=== PATIENT | male | born 1970 | race Hispanic/Latino ===

== ENCOUNTER 2017-05-15 14:37 | Observation (INO) | payer BC ==
[2017-05-15 15:16] LABS: Absolute Lymphocytes (CBC) 1.5 K/uL (0.7-4.9); Absolute Monocytes 0.8 K/uL (0.1-1.3); Absolute Neutrophil 3.6 K/uL (1.8-8.0); Basophils % 0.8 % (0-1.3); Eosinophils % 2.4 % (0-4.4); MCH 15.6 pg (27.0-35.0); MCV 59.2 fL (80-100); MPV 8.8 fL (7.6-11.3); Monocytes % 12.7 % (3.3-12.3); RBC Red Blood Cell Count 2.36 M/uL (4.33-5.43)
[2017-05-15 15:21] LABS: Anisocytosis 2+; Basophilic Stippling 1+; Blood Morphology Comment NOTED (NOT SEEN); Hypochromasia 3+; Platelet Estimate ADEQ; Polychromasia SLIGHT; Urine White Blood Cell Casts OK
[2017-05-15 15:31] LABS: Bicarbonate 24 mEq/L (21-31); Glucose Level 120 mg/dL (65-120); Potassium 4.1 mEq/L (3.6-5.0); Sodium Level 136 mEq/L (135-145)
[2017-05-15 15:39] LABS: BUN Blood Urea Nitrogen 11 mg/dL (6-20); Transferrin 323 mg/dL (180-329)
[2017-05-15 15:58] LABS: Ferritin 1.2 ng/ml (23.9-336.2)
[2017-05-15 16:01] LABS: Folic Acid, (Folate) 16.8 ng/ml (>5.21)
--- NOTE | 2017-05-15 16:30 | EDPHYS ---
Physician Documentation [facility] Name: Day Ortez Age: 47 yrs Sex: Male : 1970 Arrival Date: 05/15/2017 Time: 14:38 Bed 28 Private MD: ARNAUD Physician Anoop Cid HPI: 05/15 15:59 This 47 yrs old Male presents to ER via Wheelchair with complaints of Abnormal kb Lab Results. 15:59 The patient has not experienced similar symptoms in the past. The patient has been kb recently seen by a physician:. 15:59 The patient presents with generalized weakness. Onset: The symptoms/episode kb began/occurred 4 month(s) ago. Context: just prior to the episode the patient experienced no apparent symptoms. Modifying factors: The symptoms are alleviated by nothing, the symptoms are aggravated by nothing. Associated signs and symptoms: Pertinent positives: weakness and fatigue. Severity of symptoms: At their worst the symptoms were moderate in the emergency department the symptoms are unchanged. Patient's baseline: Neuro: alert and fully oriented, Motor: no deficits, Ambulation: walks without assistance, Speech: normal. Pt reports he has had weakness and fatigue since January. Has been going to doctors, but labs weren't done until today. He was told to come to the ER because his blood count was too low. . Historical: - Allergies: 14:44 No Known Allergies; la1 - PMHx: 14:44 None; la1 - PSHx: 14:44 None; la1 - Immunization history:: Adult Immunizations up to date. - Social history:: Smoking status: Patient/guardian denies using tobacco. ROS: 15:58 Constitutional: Negative for fever, chills, and weight loss, ENT: Negative for injury, kb pain, and discharge, Neck: Negative for injury, pain, and swelling, Cardiovascular: Negative for chest pain, palpitations, and edema, Respiratory: Negative for shortness of breath, cough, wheezing, and pleuritic chest pain, Abdomen/GI: Negative for abdominal pain, nausea, vomiting, diarrhea. +constipation Back: Negative for injury and pain, : Negative for injury, bleeding, discharge, and swelling, MS/Extremity: Negative for injury and deformity, Skin: Negative for injury, rash, and discoloration. 15:58 Neuro: Positive for weakness, Negative for altered mental status, dizziness, gait disturbance, headache, hearing loss, loss of consciousness, numbness, seizure activity, speech changes, syncope, near syncope, tingling, tinnitus, tremor, visual changes. Exam: 15:58 Constitutional: This is a well developed, well nourished patient who is awake, alert, kb and in no acute distress. Head/Face: Normocephalic, atraumatic. Chest/axilla: Normal chest wall appearance and motion. Nontender with no deformity. No lesions are appreciated. Cardiovascular: Regular rate and rhythm with a normal S1 and S2. No gallops, murmurs, or rubs. Normal PMI, no JVD. No pulse deficits. Respiratory: Lungs have equal breath sounds bilaterally, clear to auscultation and percussion. No rales, rhonchi or wheezes noted. No increased work of breathing, no retractions or nasal flaring. Abdomen/GI: Soft, non-tender, with normal bowel sounds. No distension or tympany. No guarding or rebound. No evidence of tenderness throughout. Skin: Warm, dry with normal turgor. Normal color with no rashes, no lesions, and no evidence of cellulitis. MS/ Extremity: Pulses equal, no cyanosis. Neurovascular intact. Full, normal range of motion. Neuro: Awake and alert, GCS 15, oriented to person, place, time, and situation. Cranial nerves II-XII grossly intact. Motor strength 5/5 in all extremities. Sensory grossly intact. Cerebellar exam normal. Normal gait. 15:58 Abdomen/GI: Rectal exam: rectal tone normal, Stool: brown, guaiac positive, hemorrhoid(s), external, the exam is chaperoned by the nurse, trace positive guaiac. Vital Signs: 14:44 BP 139 / 71; Pulse 92; Resp 19; Temp 98.1; Pulse Ox 100% on R/A; Weight 99.79 kg (R); la1 16:03 BP 127 / 65; Pulse 92; Resp 18; Pulse Ox 98% ; kb1 17:41 BP 133 / 78; Pulse 86; Resp 20; Temp 98.6; Pulse Ox 100% on R/A; kb1 MDM: 14:51 Patient medically screened. kb 15:57 Data reviewed: vital signs, nurses notes. Data interpreted: Pulse oximetry: on room air kb is 100 %. Interpretation: normal. Counseling: I had a detailed discussion with the patient and/or guardian regarding: the historical points, exam findings, and any diagnostic results supporting the discharge/admit diagnosis, lab results, the need for further work-up and treatment in the hospital. 16:28 Physician consultation: Gage Fox DO was contacted at 16:28, regarding admission, kb to the telemetry unit. patient's condition, in the emergency department to see patient at 16:29. 05/15 15:06 Order name: CBC with Diff; Complete Time: 15:29 kb 05/15 15:06 Order name: Basic Metabolic Panel; Complete Time: 16:03 kb 05/15 15:06 Order name: Ferritin; Complete Time: 16:03 kb 05/15 15:06 Order name: B12; Complete Time: 16:03 kb 05/15 15:06 Order name: Type And Screen kb 05/15 15:06 Order name: TIBC; Complete Time: 16:03 kb 05/15 15:06 Order name: Folic Acid,Serum (folate); Complete Time: 16:03 kb 05/15 15:21 Order name: CBC Smear Scan; Complete Time: 15:29 EDSD 05/15 15:52 Order name: Bb Add On ag 05/15 15:54 Order name: ABO/RH no charge; Complete Time: 15:55 EDSD 05/15 16:07 Order name: Packed RBC Leukored -1 EDSD 05/15 16:51 Order name: CONS Physician Consult EDSD 05/15 16:51 Order name: Echo with Doppler EDSD 05/15 16:52 Order name: Chest Pa And Lat (2 Views) EDSD 05/15 15:06 Order name: IV Start; Complete Time: 15:27 kb 05/15 16:51 Order name: Heart Healthy EDSD Administered Medications: No medications were administered Disposition: 05/15/17 16:29 Hospitalization ordered by Gage Fox for Observation. Preliminary diagnosis are Anemia, unspecified, Gastrointestinal hemorrhage, unspecified. - Bed requested for Telemetry/MedSurg (observation). - Status is Observation. ss - Condition is Stable. - Problem is new. - Symptoms are unchanged. UTI on Admission? No Addendum: 05/18/2017 08:33 Co-signature as Attending Physician, Anoop Cid MD I agree with the assessment and c ngo plan of care. Signatures: Dispatcher [employer] Rhoda Sanchez, SENIOR TECHNICAL RECRUITER-C SENIOR TECHNICAL RECRUITER-Anoop Gamez MD MD cha Smirch, Shelby RN RN ss Shin Zamora RN RN la1 Sariah Holden RN RN df
--- NOTE | 2017-05-15 16:30 | ER ---
Nurse's Notes [facility] Name: Day Ortez Age: 47 yrs Sex: Male : 1970 Arrival Date: 05/15/2017 Time: 14:38 Bed 28 Private MD: Diagnosis: Anemia, unspecified;Gastrointestinal hemorrhage, unspecified Presentation: 05/15 14:43 Presenting complaint: Patient states: He has been feeling weak and short of breath la1 since January, Lin Varner ordered some blood work and his HGB is 3.6 and HCT is 15.2. Transition of care: patient was not received from another setting of care. Onset of symptoms was May 15, 2017. Care prior to arrival: None. 14:43 Method Of Arrival: Wheelchair la1 14:43 Acuity: BRANNON 3 la1 Historical: - Allergies: 14:44 No Known Allergies; la1 - PMHx: 14:44 None; la1 - PSHx: 14:44 None; la1 - Immunization history:: Adult Immunizations up to date. - Social history:: Smoking status: Patient/guardian denies using tobacco. Screenin:20 Abuse screen: Denies threats or abuse. Nutritional screening: No deficits noted. [facility] Tuberculosis screening: No symptoms or risk factors identified. Fall Risk IV access (20 points). Assessment: 15:20 Reassessment: Family reports Pt has been feeling bad for a couple months now. Went to [facility] and had blood drawn. Sent to ER for further evaluation due to low blood count. General: Appears in no apparent distress. Behavior is calm, cooperative. Pain: Denies pain. Neuro: Level of Consciousness is awake, alert, obeys commands, Oriented to person, place, time, situation. Cardiovascular: Patient's skin is warm and dry. Respiratory: Airway is patent Respiratory effort is even, unlabored, Respiratory pattern is regular, symmetrical. GI: Abdomen is round Bowel sounds present X 4 quads. Abd is soft and non tender. : No signs and/or symptoms were reported regarding the genitourinary system. 15:23 Reassessment: Dr. Cid notified of critical lab values Hgb 3.7 and Hct 14.0. 16:02 Reassessment: Assisted to bathroom and back to bed. Tolerated well. [facility] 17:05 Reassessment: Patient appears in no apparent distress at this time. Patient and/or kb1 family updated on plan of care and expected duration. Pain level reassessed. Blood consent signed. Vital Signs: 14:44 BP 139 / 71; Pulse 92; Resp 19; Temp 98.1; Pulse Ox 100% on R/A; Weight 99.79 kg (R); la1 16:03 BP 127 / 65; Pulse 92; Resp 18; Pulse Ox 98% ; kb1 17:41 BP 133 / 78; Pulse 86; Resp 20; Temp 98.6; Pulse Ox 100% on R/A; kb1 ED Course: 14:38 Patient arrived in ED. as 14:44 Triage completed. la1 14:45 Arm band placed on left wrist. la1 14:51 Rhoda English FNP-C [facility] kb 14:51 Anoop Cid MD is Attending Physician. kb 14:52 Isabel Colorado, RN is Primary Nurse. kb1 15:20 Patient has correct armband on for positive identification. Bed in low position. Call kb1 light in reach. Side rails up X 1. quality assurance monitor body on. Pulse ox on. NIBP on. Warm blanket given. 15:20 No provider procedures requiring assistance completed. kb1 15:27 Inserted saline lock: 18 gauge in right antecubital area, using aseptic technique. kb1 Blood collected. 16:29 Gage Fox DO is Hospitalizing Provider. kb 17:42 Patient admitted, IV remains in place. kb1 Administered Medications: No medications were administered Outcome: 16:29 Decision to Hospitalize by Provider. kb 17:42 Admitted to Tele accompanied by nurse, accompanied by tech, family with patient, via kb1 stretcher, room 209, Report called to Lisa CHEEK 17:42 Condition: stable 17:42 Instructed on the need for admit. 18:06 Patient left the ED. Signatures: Rhoda English FNP-C FNP-Ara Cruz Shelby, RN RN ss Shin Zamora RN RN la1 Isabel Colorado, ADIA RN kb
[2017-05-15] MEDS ORDERED: ONDANSETRON 4 MG/2 ML VIAL IV PRN (16:46)
[2017-05-15] MEDS ORDERED: SODIUM CHLORIDE 0.9% 10ML INJ IV PRN (16:46)
[2017-05-15] MEDS ORDERED: ACETAMINOPHEN 500 MG TAB PO PRN ×2 (16:46)
[2017-05-15] MEDS ORDERED: NA CHLORIDE 0.9% 250 ML ONE (16:53)
--- NOTE | 2017-05-15 16:57 | P.HP ---
Certification for Inpatient Patient admitted to: Observation With expected LOS: <2 Midnights Patient will require the following post-hospital care: None Practitioner: I am a practitioner with admitting privileges, knowledge of patient current condition, hospital course, and medical plan of care. Services: Services provided to patient in accordance with Admission requirements found in Title 42 Section 412.3 of the Code of Federal Regulations Patient History Date of Service: 05/15/17 Primary Care Provider: Dr. Coats Reason for admission: Fatigue, shortness of breath History of Present Illness: 47-year-old male presented emergency room with increasing fatigue and shortness of breath along with abnormal lab. She reports that he was diagnosed with pneumonia in January 2017. He was treated for this. Since that time his allergies has been active. He reports increasing cough and congestion. He also reports some shortness of breath. During this time. He has been taking ibuprofen on a regular basis due to aches and pains. Patient has history of alcohol abuse in the past. He was a heavy drinker prior to 6 months ago. Patient denied any significant melena, rectal bleeding, hematemesis. The patient recently went to be evaluated by his PCP. Lab was obtained. Lab was abnormal for severe anemia. The patient was sent to the ER for further evaluation. In the ER the patient was evaluated. Hemoglobin was at 3.7. This was repeated and confirmed. Iron level and B12 levels were both low. Due to the nature the findings the patient was admitted for blood transfusion and evaluation. When I saw the patient in the ER, he did not appear in any distress. Patient reports a history of using ibuprofen on a regular basis. He also admits to alcohol abuse in the past. Patient has been reporting some increased indigestion and reflux. Allergies No Known Allergies Allergy (Unverified 03/08/17 21:12) Home medications list reviewed: Yes - Past Medical/Surgical History Diabetic: No -: History of alcohol abuse in the past -: GERD Past Surgical History: Patient denies surgical history Psychosocial/ Personal History: The patient is . 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 - Family History Family History: Reviewed- Non-Contributory - Social History Smoking Status: Never smoker Alcohol use: Yes CD- Drugs: No Caffeine use: Yes Place of Residence: Home Review of Systems General: Weakness, Malaise, As per HPI Eyes: Unremarkable ENT: Unremarkable Respiratory: Shortness of Breath, As per HPI Cardiovascular: Unremarkable Gastrointestinal: Unremarkable Genitourinary: Unremarkable Musculoskeletal: Unremarkable Integumentary: Unremarkable Neurological: Unremarkable Lymphatics: Unremarkable Physical Examination - Physical Exam General: Alert, In no apparent distress, Oriented x3, Cooperative HEENT: Atraumatic, Normocephalic, PERRLA, Mucous membr. moist/pink Neck: Supple, No Thyromegaly Respiratory: Clear to auscultation bilaterally, Normal air movement Cardiovascular: Normal pulses, Regular rate/rhythm Gastrointestinal: Normal bowel sounds, Soft and benign, Non-distended, No tenderness, No masses, No rebound, No guarding Musculoskeletal: No contractures, No erythema, No tenderness, No warmth Integumentary: No tenderness/swelling, No erythema, No warmth, No cyanosis Neurological: Normal speech, Normal strength at 5/5 x4 extr, Normal tone, Normal affect - Studies Laboratory Data (last 24 hrs) 05/15/17 15:01: Sodium 136, Potassium 4.1, BUN 11, Creatinine 0.85, Glucose 120 05/15/17 15:01: WBC 6.1, Hgb 3.7 L*, Hct 14.0 L*, Plt Count 192 Assessment and Plan - Problems (Diagnosis) (1) Anemia Current Visit: Yes Status: Acute Plan: Patient with anemia likely from NSAID use and history of alcohol. Patient reports GERD. No melena, rectal bleeding or hematemesis noted. Patient will be transfused 2 units of blood initially. Will try to keep hemoglobin above 7. Will discuss case with GI. Will keep the patient NPO for possible EGD as an inpatient. If stable the patient can also have a workup done as an outpatient. Will reassess in the morning. Will start IV Protonix. Recommend no further use of nonsteroidal anti-inflammatories. Will provide iron and B12 supplementation. I will be out of town tomorrow. Dr. Bhatt will cover (2) Fatigue Current Visit: Yes Status: Acute Plan: As above. Will check echocardiogram and TSH. Qualifiers: Fatigue type: unspecified Qualified Code(s): R53.83 - Other fatigue (3) GERD (gastroesophageal reflux disease) Current Visit: Yes Status: Chronic Plan: Patient likely has GERD. Will continue as above. Await recommendations from GI. Qualifiers: Esophagitis presence: esophagitis presence not specified Qualified Code(s) : K21.9 - Gastro-esophageal reflux disease without esophagitis (4) Shortness of breath Current Visit: Yes Status: Acute Plan: Patient with increasing shortness of breath. This is likely due to anemia. Will check echocardiogram and chest x-ray to further assess. Discharge Plan: Home Plan to discharge in: 24 Hours - Advance Directives Does patient have a Living Will: No Does patient have a Durable POA for Healthcare: No - Code Status/Comfort Care Code Status Assessed: Yes Time Spent Managing Pts Care (In Minutes): 55
--- NOTE | 2017-05-15 20:37 | RAD REPORT ---
EXAM DESCRIPTION: Juan Jose Single View05/15/2017 8:11 pm CLINICAL HISTORY: Shortness of breath COMPARISON: none FINDINGS: A 3 centimeter lucency overlies the right side of the heart. Otherwise the lungs appear cl ear. The heart is borderline enlarged IMPRESSION: 3 centimeter lucency overlying the right heart may represent normal aerated lung. A cavi tary lesion could also have this appearance. It is recommended that the patient have a PA and lateral chest series for further evaluation
[2017-05-15] MEDS ORDERED: DIPHENHYDRAMINE 25 MG TAB/CAP PO ONE (21:23)
[2017-05-15 22:43] LABS: Urine Appearance CLEAR; Urine Bilirubin NEGATIVE (NEG); Urine Blood NEGATIVE (NEG); Urine Color YELLOW; Urine Glucose NEGATIVE (NEG); Urine Protein NEGATIVE (NEG); Urine Specific Gravity 1.015 (1.005-1.030); Urine pH 7.5 (5.0-7.0)
[2017-05-15 23:10] LABS: Urine Microscopic Reflex NO UMIC
[2017-05-16] MEDS: FUROSEMIDE 20 MG/ 2ML VIAL IV SCH ×2 (02:42→11:04)
[2017-05-16 05:14] LABS: Absolute Lymphocytes (CBC) 1.3 K/uL (0.7-4.9); Absolute Monocytes 0.8 K/uL (0.1-1.3); Absolute Neutrophil 4.1 K/uL (1.8-8.0); Basophils % 2.3 % (0-1.3); Eosinophils % 3.8 % (0-4.4); Lymphocytes % 19.6 % (15.3-44.8); MPV 9.2 fL (7.6-11.3); Monocytes % 11.6 % (3.3-12.3); RBC Red Blood Cell Count 3.11 M/uL (4.33-5.43)
[2017-05-16 05:16] LABS: Hematocrit 20.1 % (39.6-49.0); MCV 64.7 fL (80-100)
[2017-05-16] MEDS ORDERED: FUROSEMIDE 20 MG/ 2ML VIAL IV PRN (05:39)
[2017-05-16] MEDS ORDERED: NA CHLORIDE 0.9% 250 ML ONE (06:51)
[2017-05-16 08:25] LABS: BUN Blood Urea Nitrogen 11 mg/dL (6-20); Bicarbonate 27 mEq/L (21-31); Glucose Level 92 mg/dL (65-120); HDL Cholesterol 26 mg/dL (27-67); LDL Cholesterol, Calculated 78 (<130); Potassium 4.1 mEq/L (3.6-5.0); Sodium Level 137 mEq/L (135-145); Thyroid Stimulating Hormone 3.03 uIU/mL (0.34-5.60)
[2017-05-16] MEDS ORDERED: PANTOPRAZOLE 40 MG INJ IVP SCH (09:00)
[2017-05-16] MEDS ORDERED: PROPOFOL 200 MG/20 ML VIAL IV ONE (09:24)
[2017-05-16] MEDS ORDERED: LIDOCAINE 1% MPF 5 ML VIAL ONE (09:24)
[2017-05-16] MEDS: Ringers Lactate 1,000 ML IV ONE ×2 (09:25→09:40)
[2017-05-16] MEDS: METOCLOPRAMIDE 10 MG/2mL INJ IV SCH ×3 (12:00→17:26)
--- NOTE | 2017-05-16 12:06 | P.PN ---
Subjective Date of Service: 05/16/17 (Hospitalist) Primary Care Provider: Dr. Coats Chief Complaint: Severe anemia Subjective: Improving (Patient is improving status post EGD no new complaints) Review of Systems Yoruba-speaking denies any complaints Physical Examination - Vital Signs Temperature: 97.7 F Blood Pressure: 130/71 Pulse: 70 Respirations: 20 Pulse Ox (%): 98 - Physical Exam General: Alert, Cooperative Neck: Supple Respiratory: Clear to auscultation bilaterally Cardiovascular: No edema, Regular rate/rhythm Gastrointestinal: Normal bowel sounds, Soft and benign - Studies Laboratory Data (last 24 hrs) 05/15/17 15:01: Sodium 136, Potassium 4.1, BUN 11, Creatinine 0.85, Glucose 120 05/15/17 15:01: WBC 6.1, Hgb 3.7 L*, Hct 14.0 L*, Plt Count 192 Assessment & Plan - Problems (Diagnosis) (1) Anemia Current Visit: Yes Status: Acute Plan: Patient is 47 years of age admitted with severe anemia the EGD today was negative he is scheduled for a colonoscopy tomorrow as no history of GI bleeding he did have a severe chronic microcytic anemia most likely to underlying GI blood loss scheduled to have a hemoglobin checked again he has been transfused 3 units of packed red blood cells is all iron-deficient anemia replace iron
[2017-05-16 12:33] LABS: Hematocrit 23.4 % (39.6-49.0)
[2017-05-16] MEDS: MAGNESIUM CITRATE 300 ML BOT PO SCH (13:41)
[2017-05-16] MEDS: SOD FERRIC GLUC COMPLX/SUCROSE 250 MG in NA CHLORIDE 0.9% 250 ML IV SCH (13:50)
--- NOTE | 2017-05-16 14:46 | CON ---
Date of Consultation: 05/16/2017 Reason For Consultation: Hematemesis with iron-deficiency anemia and family history of colon cancer. History Of Present Illness: The patient is a 47-year-old male with history of chronic cough and family history of colon cancer in his father. The patient presented to the hospital due to incr easing fatigue and shortness of breath after being seen by his primary care physician on abnormal lab . He is noted to have a hemoglobin down to 3.7. Daughter states that he has had been having some mi nor hematochezia recently, but the main reason he came in is because his hemoglobin was low with this fatigue, severe and hematemesis. Though she says he has minimal hematemesis, the real reason is marlo t he has been fatigued and has a very low hemoglobin on evaluation by a new primary care, Lin vergara. Past Medical History: Significant for alcohol abuse in the past, gastric reflux disease, and bronchi tis. Daughter states he is having a chronic cough for some time at least and month and is diagnosed with bronchitis. Home Medications: Appears to be none. Allergies: NKDA. Social History: He is . One daughter. No tobacco, quit alcohol 7 months ago due to his 's insistence for prior alcohol abuse. Family History: Father of colon cancer. Mother is alive with knee disorder. Review of Systems: The patient has fatigue; hematemesis, hematochezia, both minimal; iron deficiency anemia, chronic cou gh. Denies any melena, hemoptysis, hematuria, dysuria, polydipsia, chest pain, this low mouth, short ness of breath, not much. No seizures, syncope, lower extremity edema, paresthesias, muscle aches, j oint aches, backaches. Physical Examination: Vital Signs: The patient and 5 foot 5 inches, BMI 37.3 kg/m2. Temperature 97.8 degrees Fahrenheit, pulse 71, respirations 18, blood pressure 113/58, O2 saturation 99%. HEENT: Normocephalic, atraumatic. Anicteric. Pupils equal, round, and reactive to light. Extraocu lar movements are clear. Conjunctiva pale. Neck: Supple. No masses. Respirations: Clear to auscultation bilaterally. Cardiac: Regular rate and rhythm. No gallops or rubs. Gastrointestinal: Positive bowel sounds. Soft, nontender, nondistended. No hepatosplenomegaly. Extremities: No clubbing, cyanosis, edema. 2+ pulses. Neuro: Alert and oriented x3. Grossly nonfocal. 5/5 motor strength to light touch. Laboratory Data: On admission yesterday, patient had a white count 6.1, hemoglobin 3.7, hematocrit 1 4, MCV of 59.2, platelet count 192, polys of 59%, lymphocytes 24%, monocytes 13%, eosinophils 2%. To day after 2 units of blood, his hemoglobin went up from 3.7 to 5.9. Today, he has a hematocrit today has a sodium 137, potassium 4.1, chloride 101, bicarb 27, BUN 11, creatinine of 0.84, glucose 92, ca lcium 8.4, magnesium 3. He has an iron saturation of 2.2, ferritin of 1.2, iron of 10, TIBC of 452, triglycerides 55, cholesterol 115, LDL 78, HDL 26, vitamin B12 at 282, folate of 16.8, TSH of 3.03, f ree T4 0.94. UA is negative. Chest x-ray showed a 3 cm lucency overlying the heart, may represent n ormal area of lung. The cavitary lesion could also have this appearance. Recommend the patient have a PA and lateral for further evaluation and get that order. Impression: 1.Severe iron-deficiency anemia with hemoglobin of 3.7, MCV of 59, ferritin of 1.2, iron saturation of 2.2. Needs both evaluation with EGD and colonoscopy. 2.Minimal hematemesis. 3.Minimal hematochezia by daughter's report. 4.Chronic bronchitis. 5.Family history of colon cancer in father. Need to be evaluated. Colonoscopy. Recommendation: 1.EGD. 2.Colonoscopy. 3.Agree with packed RBCs transfusion, currently undergoing. 4.Serial H and H and transfuse p.r.n. and also PPI therapy. ROXANA/SALVADOR Voice ID: [id number] Report ID: [id number]
[2017-05-16] MEDS: GOLYTELY 4000 ML PO SCH (15:21)
--- NOTE | 2017-05-16 21:37 | RAD REPORT ---
EXAM DESCRIPTION: RAD - Chest Pa And Lat (2 Views) - 05/16/2017 9:30 pm CLINICAL HISTORY: Chest pain. COMPARISON: 05/15/2017 FINDINGS: The lungs are clear. The heart is normal in size. No displaced fractures. Moderate hiatal hernia. IMPRESSION: Moderate hiatal hernia.
[2017-05-17 05:14] LABS: Absolute Lymphocytes (CBC) 1.1 K/uL (0.7-4.9); Absolute Monocytes 0.7 K/uL (0.1-1.3); Absolute Neutrophil 5.1 K/uL (1.8-8.0); Basophils % 1.6 % (0-1.3); Eosinophils % 2.2 % (0-4.4); Lymphocytes % 15.2 % (15.3-44.8); MCV 66.3 fL (80-100); MPV 9.4 fL (7.6-11.3); Monocytes % 10.1 % (3.3-12.3); RBC Red Blood Cell Count 3.46 M/uL (4.33-5.43)
[2017-05-17 05:44] LABS: BUN Blood Urea Nitrogen 12 mg/dL (6-20); Bicarbonate 27 mEq/L (21-31); Glucose Level 94 mg/dL (65-120); Magnesium 2.3 mg/dL (1.8-2.5); Potassium 3.9 mEq/L (3.6-5.0); Sodium Level 138 mEq/L (135-145)
[2017-05-17] MEDS ORDERED: NA CHLORIDE 0.9% 250 ML ONE (06:29)
[2017-05-17] MEDS: SOD FERRIC GLUC COMPLX/SUCROSE 250 MG in NA CHLORIDE 0.9% 250 ML IV SCH (09:00)
[2017-05-17] MEDS ORDERED: PROPOFOL 200 MG/20 ML VIAL IV ONE ×2 (10:19→10:49)
[2017-05-17] MEDS ORDERED: NA CHLORIDE 0.9% 1,000 ML ONE (10:39)
[2017-05-17] MEDS ORDERED: POTASSIUM CL SA 10 MEQ TAB PO ONE (12:00)
[2017-05-17] MEDS: GOLYTELY 4000 ML PO SCH (12:39)
[2017-05-17] MEDS: MAGNESIUM CITRATE 300 ML BOT PO SCH (12:39)
--- NOTE | 2017-05-17 12:48 | RAD REPORT ---
EXAM DESCRIPTION: RAD - Small Bowel Series - 05/17/2017 12:27 pm CLINICAL HISTORY: Abdominal pain/ COMPARISON: None. FINDINGS: Contrast enters the colon by approximately 30 minutes The mucosal folds of the small bowel appear normal. No permanent filling defects, obstructing or constricting lesions are seen. The small bowel caliber is normal. The mucosal folds of the duodenum appears somewhat nodular. A small to moderate hiatal hernia is pres ent IMPRESSION: Rapid small-bowel transit. Small to moderate hiatal hernia Mucosal folds of the duodenum appears somewhat nodular. It is unsure whether this is secondary to pat hology such as inflammation/infection or incomplete distention. A CT scan with oral contrast and opac ification of the duodenum would be helpful for further evaluation
--- NOTE | 2017-05-17 13:59 | P.DS ---
Admission Date: 05/15/17 Discharge Date: 05/17/17 Primary Care Provider: Dr. Coats Disposition: ROUTINE DISCHARGE Reason for Admission: Severe anemia Procedures: Endoscopy and colonoscopy - Problems (1) Anemia Current Visit: Yes Status: Acute Qualifiers: Anemia type: iron deficiency Brief History of Present Illness: Patient is 47 years of age admitted with severe anemia he denies any history of GI loss apart from taking nonsteroidals Hospital Course: Patient had no problems during the stay he was transfused 4 units of packed red blood cells in addition to IV IN for anoscopy and endoscopy apparently when nondiagnostic small-bowel both of follow through shows some inflammation in the duodenal area patient is stable to be discharged home at the time of discharge he was alert oriented responsive vital signs all stable for new complaints no abdominal pain and nobody chest clear when soft extremities no edema patient to continue with I and follow up with GI will go home on a PPI instructed to ovoid using nonsteroidals Vital Signs/Physical Exam: Temp Pulse Resp BP Pulse Ox 98.8 F 78 20 120/69 96 05/17/17 11:01 05/17/17 11:01 05/17/17 11:01 05/17/17 11:01 05/17/17 08:00 Laboratory Data at Discharge: WBC 7.3 K/uL (4.3-10.9) 05/17/17 04:53 Hgb 6.9 g/dL (13.6-17.9) L* 05/17/17 04:53 Hct 23.0 % (39.6-49.0) L 05/17/17 04:53 Plt Count 180 K/uL (152-406) 05/17/17 04:53 Sodium 138 mEq/L (135-145) 05/17/17 04:53 Potassium 3.9 mEq/L (3.6-5.0) 05/17/17 04:53 BUN 12 mg/dL (6-20) 05/17/17 04:53 Creatinine 0.85 mg/dL (0.61-1.24) 05/17/17 04:53 Glucose 94 mg/dL (65-120) 05/17/17 04:53 Magnesium 2.3 mg/dL (1.8-2.5) 05/17/17 04:53 Triglycerides 55 mg/dL (35-160) 05/16/17 04:22 Cholesterol 115 mg/dL (<200) 05/16/17 04:22 HDL Cholesterol 26 mg/dL (27-67) L 05/16/17 04:22 Cholesterol/HDL Ratio 4.42 05/16/17 04:22 Home Medications: NK [No Home Meds] 05/16/17
[2017-05-17 14:39] LABS: Hematocrit 25.9 % (39.6-49.0)
== END 2017-05-17 15:38 | disposition home or self-care (01) ==
LOC: ER 14:37 → ERHOLD 16:38 → 2ND 17:28
PROVIDERS: ADMIT Family Medicine; ATTEND Family Medicine
PROC: 0DB78ZX Excision of Stomach, Pylorus, Via Natural or Artificial Opening Endoscopic, Diagnostic (ICD-10-PCS; 2017-05-16)
PROC: 30233N1 Transfusion of Nonautologous Red Blood Cells into Peripheral Vein, Percutaneous Approach (ICD-10-PCS; 2017-05-17)
PROC: 0DJD8ZZ Inspection of Lower Intestinal Tract, Via Natural or Artificial Opening Endoscopic (ICD-10-PCS; principal; 2017-05-17 09:00)
DX: D50.9 Iron deficiency anemia, unspecified (principal); K92.0 Hematemesis; K21.9 Gastro-esophageal reflux disease without esophagitis; R53.83 Other fatigue; K64.4 Residual hemorrhoidal skin tags; K64.8 Other hemorrhoids; K44.9 Diaphragmatic hernia without obstruction or gangrene; Z80.0 Family history of malignant neoplasm of digestive organs
CPT/HCPCS: 36415; 36430; 71045; 71046; 74250; 80048; 80061; 81003; 82607; 82728; 82746; 83540; 83735; 84439; 84443; 84466; 85014; 85018; 85025; 86850; 86900; 86901; 88305; 88312; 88313; 99285; C9113; G0378; J1940; J2765; J2916; J7030; P9016

== ENCOUNTER 2018-02-20 02:54 | Emergency (ER) | payer BC ==
--- NOTE | 2018-02-20 03:33 | ER ---
Nurse's Notes [facility] Name: Day Ortez Age: 48 yrs Sex: Male : 1970 Arrival Date: 02/20/2018 Time: 02:57 Bed 6 Private MD: Diagnosis: Fever, unspecified;Acute tonsillitis Presentation: 02/20 03:00 Presenting complaint: Patient states: that for the past 2 days he has been having fc fever, sore throat and swollen glands. Transition of care: patient was not received from another setting of care. Onset of symptoms was February 18, 2018. Risk Assessment: Do you want to hurt yourself or someone else? Patient reports no desire to harm self or others. Initial Sepsis Screen: Does the patient meet any 2 criteria? No. Patient's initial sepsis screen is negative. Does the patient have a suspected source of infection? No. Patient's initial sepsis screen is negative. Care prior to arrival: Medication(s) given: Tylenol, last at 2000 last night. 03:00 Method Of Arrival: Ambulatory fc 03:00 Acuity: BRANNON 4 fc Historical: - Allergies: 03:12 No Known Allergies; fc - Home Meds: 03:12 None [Active]; fc - PMHx: 03:12 H-pylori; fc - PSHx: 03:12 None; fc - Immunization history:: Last tetanus immunization: unknown, Flu vaccine is not up to date. - Social history:: Smoking status: Patient/guardian denies using tobacco, Patient/guardian denies using alcohol, street drugs. - Ebola Screening: : Patient negative for fever greater than or equal to 101.5 degrees Fahrenheit, and additional compatible Ebola Virus Disease symptoms Patient denies exposure to infectious person Patient denies travel to an Ebola-affected area in the 21 days before illness onset. - Family history:: not pertinent. Screenin:07 Abuse screen: Denies threats or abuse. Nutritional screening: No deficits noted. bb Tuberculosis screening: No symptoms or risk factors identified. 04:04 Fall Risk None identified. bb Assessment: 03:07 General: Appears in no apparent distress. Behavior is calm, cooperative. Pain: bb Complains of pain in throat. Neuro: Level of Consciousness is awake, alert, obeys commands, Oriented to person, place, time, situation. Cardiovascular: No deficits noted. Respiratory: Respiratory effort is even, unlabored, Respiratory pattern is regular, Breath sounds are clear bilaterally. GI: No deficits noted. No signs and/or symptoms were reported involving the gastrointestinal system. EENT: Throat is reddened has enlarged tonsils Reports sore throat. Derm: Skin is pink, warm \T\ dry. Musculoskeletal: Circulation, motion, and sensation intact. 04:01 Reassessment: No changes from previously documented assessment. Patient and/or family ed1 updated on plan of care and expected duration. Pain level reassessed. Patient is alert, oriented x 3, equal unlabored respirations, skin warm/dry/pink. pt verbalized understanding of and agrees to plan of care discharge instructions given pt ambulated with steady gait to exit accompanied by family. Vital Signs: 03:00 BP 156 / 110; Pulse 72; Resp 18; Temp 98.1(O); Pulse Ox 98% on R/A; Weight 99.79 kg fc (R); Height 5 ft. 5 in. (165.10 cm) (R); Pain 8/10; 03:00 Body Mass Index 36.61 (99.79 kg, 165.10 cm) ED Course: 02:57 Patient arrived in ED. es 03:00 Arm band placed on Patient placed in a hallway bed, on a stretcher. fc 03:07 nAoop Cid MD is Attending Physician. maddie 03:07 Africa Smallwood, ADIA is Primary Nurse. bb 03:07 Patient has correct armband on for positive identification. Bed in low position. Call bb light in reach. Side rails up X 1. Adult w/ patient. Pulse ox on. NIBP on. 03:11 Triage completed. fc 04:03 No provider procedures requiring assistance completed. Patient did not have IV access bb during this emergency room visit. Administered Medications: 03:53 Drug: Decadron 10 mg Route: IM; Site: right ventrogluteal; bb 04:03 Follow up: Response: No adverse reaction bb 03:53 Drug: Bicillin L-A 1.8 million units Route: IM; Site: left ventrogluteal; bb 04:03 Follow up: Response: No adverse reaction bb Outcome: 03:32 Discharge ordered by . maddie 04:03 Discharged to home ambulatory, with family. bb 04:03 Condition: stable 04:03 Discharge instructions given to patient, family, Instructed on discharge instructions, follow up and referral plans. Demonstrated understanding of instructions, follow-up care. 04:04 Patient left the ED. bb Signatures: Anoop Cid MD MD cha Salyer, Edna es Chretien, Felicia, RN RN Africa Cuellar RN RN Loli Gibbs, PASSENGER CONDUCTOR PASSENGER CONDUCTOR ed1
--- NOTE | 2018-02-20 03:33 | EDPHYS ---
Physician Documentation [facility] Name: Day Ortez Age: 48 yrs Sex: Male : 1970 Arrival Date: 02/20/2018 Time: 02:57 Bed 6 Private MD: ARNAUD Physician Aonop Cid HPI: 02/20 03:28 This 48 yrs old Male presents to ER via Ambulatory with complaints of Fever, maddie Swollen Glands. 03:28 The patient reports fever, that was measured at 103 degrees Fahrenheit. Onset: The maddie symptoms/episode began/occurred 1 day(s) ago. Modifying factors: there are no obvious modifying factors. Associated signs and symptoms: Pertinent positives: chills, cough. Severity of symptoms: At their worst the symptoms were mild moderate in the emergency department the symptoms are unchanged. The patient has not experienced similar symptoms in the past. Historical: - Allergies: 03:12 No Known Allergies; fc - Home Meds: 03:12 None [Active]; fc - PMHx: 03:12 H-pylori; fc - PSHx: 03:12 None; fc - Immunization history:: Last tetanus immunization: unknown, Flu vaccine is not up to date. - Social history:: Smoking status: Patient/guardian denies using tobacco, Patient/guardian denies using alcohol, street drugs. - Ebola Screening: : Patient negative for fever greater than or equal to 101.5 degrees Fahrenheit, and additional compatible Ebola Virus Disease symptoms Patient denies exposure to infectious person Patient denies travel to an Ebola-affected area in the 21 days before illness onset. - Family history:: not pertinent. ROS: 03:28 Constitutional: Negative for fever, chills, and weight loss, Eyes: Negative for injury, maddie pain, redness, and discharge, Cardiovascular: Negative for chest pain, palpitations, and edema, Respiratory: Negative for shortness of breath, cough, wheezing, and pleuritic chest pain, Abdomen/GI: Negative for abdominal pain, nausea, vomiting, diarrhea, and constipation, Back: Negative for injury and pain, : Negative for injury, bleeding, discharge, and swelling, MS/Extremity: Negative for injury and deformity, Skin: Negative for injury, rash, and discoloration, Neuro: Negative for headache, weakness, numbness, tingling, and seizure, Psych: Negative for depression, anxiety, suicide ideation, homicidal ideation, and hallucinations, Allergy/Immunology: Negative for hives, rash, and allergies, Endocrine: Negative for neck swelling, polydipsia, polyuria, polyphagia, and marked weight changes, Hematologic/Lymphatic: Negative for swollen nodes, abnormal bleeding, and unusual bruising. 03:28 ENT: Positive for sore throat. 03:28 Neck: Positive for swollen nodes, tenderness. Exam: 03:28 Constitutional: This is a well developed, well nourished patient who is awake, alert, maddie and in no acute distress. Head/Face: Normocephalic, atraumatic. Eyes: Pupils equal round and reactive to light, extra-ocular motions intact. Lids and lashes normal. Conjunctiva and sclera are non-icteric and not injected. Cornea within normal limits. Periorbital areas with no swelling, redness, or edema. Neck: Trachea midline, no thyromegaly or masses palpated, and no cervical lymphadenopathy. Supple, full range of motion without nuchal rigidity, or vertebral point tenderness. No Meningismus. Chest/axilla: Normal chest wall appearance and motion. Nontender with no deformity. No lesions are appreciated. Cardiovascular: Regular rate and rhythm with a normal S1 and S2. No gallops, murmurs, or rubs. Normal PMI, no JVD. No pulse deficits. Respiratory: Lungs have equal breath sounds bilaterally, clear to auscultation and percussion. No rales, rhonchi or wheezes noted. No increased work of breathing, no retractions or nasal flaring. Abdomen/GI: Soft, non-tender, with normal bowel sounds. No distension or tympany. No guarding or rebound. No evidence of tenderness throughout. Back: No spinal tenderness. No costovertebral tenderness. Full range of motion. Male : Normal genitalia with no discharge or lesions. Skin: Warm, dry with normal turgor. Normal color with no rashes, no lesions, and no evidence of cellulitis. MS/ Extremity: Pulses equal, no cyanosis. Neurovascular intact. Full, normal range of motion. Neuro: Awake and alert, GCS 15, oriented to person, place, time, and situation. Cranial nerves II-XII grossly intact. Motor strength 5/5 in all extremities. Sensory grossly intact. Cerebellar exam normal. Normal gait. Psych: Awake, alert, with orientation to person, place and time. Behavior, mood, and affect are within normal limits. 03:28 ENT: Posterior pharynx: Tonsils: bilaterally enlarged, with erythema, Uvula: midline, edematous, erythema, swelling, that is mild, erythema, that is moderate, peritonsillar mass, is not appreciated. Vital Signs: 03:00 BP 156 / 110; Pulse 72; Resp 18; Temp 98.1(O); Pulse Ox 98% on R/A; Weight 99.79 kg (R); Height 5 ft. 5 in. (165.10 cm) (R); Pain 8/10; 03:00 Body Mass Index 36.61 (99.79 kg, 165.10 cm) MDM: 03:07 Patient medically screened. [facility] 03:28 Data reviewed: vital signs, nurses notes, lab test result(s). [facility] 02/20 03:13 Order name: Strep 02/20 03:13 Order name: Flu 02/20 03:49 Order name: Throat Culture EDMS Administered Medications: 03:53 Drug: Decadron 10 mg Route: IM; Site: right ventrogluteal; bb 04:03 Follow up: Response: No adverse reaction bb 03:53 Drug: Bicillin L-A 1.8 million units Route: IM; Site: left ventrogluteal; bb 04:03 Follow up: Response: No adverse reaction bb Disposition: 02/20/18 03:32 Discharged to Home. Impression: Fever, unspecified, Acute tonsillitis. - Condition is Stable. - Discharge Instructions: Fever, Adult, Tonsillitis, Tonsillitis, [id number], Fever, Adult, [id number]. - Medication Reconciliation Form, Thank You Letter, Antibiotic Education, Prescription Opioid Use form. - Follow up: Private Physician; When: 2 - 3 days; Reason: Recheck today's complaints, Continuance of care, Re-evaluation by your physician. - Problem is new. - Symptoms have improved. Signatures: Dispatcher [employer] EDMS Anoop Cid MD MD cha Chretien, Felicia RN RN fc Africa Smallwood RN RN bb Corrections: (The following items were deleted from the chart) 04:04 03:32 02/20/2018 03:32 Discharged to Home. Impression: Fever, unspecified; Acute bb tonsillitis. Condition is Stable. Forms are Medication Reconciliation Form, Thank You Letter, Antibiotic Education, Prescription Opioid Use. Follow up: Private Physician; When: 2 - 3 days; Reason: Recheck today's complaints, Continuance of care, Re-evaluation by your physician. Problem is new. Symptoms have improved. maddie
[2018-02-20] MEDS ORDERED: DEXAMETHASONE 10 MG/ML VIAL ONE (03:51)
[2018-02-20] MEDS ORDERED: PEN G BENZ LA 2.4 MU/4 ML SYRINGE IM ONE (03:52)
== END 2018-02-20 04:04 | disposition home or self-care (01) ==
LOC: ER 02:54
DX: J03.90 Acute tonsillitis, unspecified (principal)
CPT/HCPCS: 87070; 87081; 87804; 96372; 99283; J0561; J1100

== ENCOUNTER 2018-05-16 13:35 | Emergency (ER) | payer BC ==
[2018-05-16] MEDS ORDERED: IBUPROFEN 200 MG TAB PO ONE (14:28)
[2018-05-16] MEDS ORDERED: IBUPROFEN 400 MG TAB ONE (14:28)
[2018-05-16] MEDS ORDERED: DIAZEPAM 5 MG TABLET ONE (14:29)
[2018-05-16 14:37] LABS: Urine Blood NEGATIVE (NEG); Urine Glucose NEGATIVE (NEG); Urine Protein NEGATIVE (NEG); Urine Specific Gravity 1.015 (1.005-1.030); Urine pH 5.5 (5.0-7.0)
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
--- NOTE | 2018-05-16 15:49 | ER ---
Nurse's Notes [facility] Name: Day Ortez Age: 48 yrs Sex: Male : 1970 Arrival Date: 05/16/2018 Time: 13:37 Bed 25 Private MD: Diagnosis: Low back pain;Strain of muscle and tendon of back wall of thorax Presentation: 05/16 13:41 Presenting complaint: Patient states: I have been having back pain since Thursday, pt la1 denies injury, denies N/V/D, pain made worse by movement, pain radiates to right posterior thigh area. Transition of care: patient was not received from another setting of care. Onset of symptoms was May 16, 2018. Risk Assessment: Do you want to hurt yourself or someone else? Patient reports no desire to harm self or others. Initial Sepsis Screen: Does the patient meet any 2 criteria? No. Patient's initial sepsis screen is negative. Does the patient have a suspected source of infection? No. Patient's initial sepsis screen is negative. Care prior to arrival: None. 13:41 Method Of Arrival: Ambulatory la1 13:41 Acuity: BRANNON 3 la1 Historical: - Allergies: 13:42 No Known Allergies; la1 - PMHx: 13:42 H-pylori; la1 - Immunization history:: Adult Immunizations up to date. - Social history:: Smoking status: Patient/guardian denies using tobacco. - Ebola Screening: : No symptoms or risks identified at this time. - Family history:: not pertinent. Screenin:45 Abuse screen: Denies threats or abuse. Denies injuries from another. Nutritional ca1 screening: No deficits noted. Tuberculosis screening: No symptoms or risk factors identified. Fall Risk None identified. Assessment: 13:45 General: Appears in no apparent distress. comfortable, Behavior is calm, cooperative, ca1 appropriate for age. Pain: Complains of pain in back Pain radiates to right leg Pain currently is 10 out of 10 on a pain scale. Pain began 2-3 days ago. Neuro: Level of Consciousness is awake, alert, obeys commands, Oriented to person, place, time, situation. Cardiovascular: Heart tones S1 S2 present Capillary refill < 3 seconds Patient's skin is warm and dry. Respiratory: Airway is patent Respiratory effort is even, unlabored, Respiratory pattern is regular, symmetrical, Breath sounds are clear bilaterally. GI: No deficits noted. No signs and/or symptoms were reported involving the gastrointestinal system. : No deficits noted. No signs and/or symptoms were reported regarding the genitourinary system. EENT: No deficits noted. No signs and/or symptoms were reported regarding the EENT system. Derm: Skin is intact, is healthy with good turgor, Skin is pink, warm \T\ dry. Musculoskeletal: Circulation, motion, and sensation intact. Capillary refill < 3 seconds. 14:30 Reassessment: Patient appears in no apparent distress at this time. Patient and/or ca1 family updated on plan of care and expected duration. Pain level reassessed. Patient is alert, oriented x 3, equal unlabored respirations, skin warm/dry/pink. Pt to radiology. 15:20 Reassessment: Patient appears in no apparent distress at this time. Patient and/or ca1 family updated on plan of care and expected duration. Pain level reassessed. Patient is alert, oriented x 3, equal unlabored respirations, skin warm/dry/pink. Pt back from Xray. 15:40 Reassessment: Patient appears in no apparent distress at this time. Patient is alert, ca1 oriented x 3, equal unlabored respirations, skin warm/dry/pink. Vital Signs: 13:42 BP 151 / 95; Pulse 94; Resp 16; Temp 97.5; Pulse Ox 98% on R/A; Weight 104.33 kg; la1 Height 5 ft. 6 in. (167.64 cm); 14:00 BP 134 / 91; Pulse 90; Resp 18; Pulse Ox 100% on R/A; jp3 15:20 BP 136 / 83; Pulse 60; Resp 19 S; Pulse Ox 100% on R/A; ca1 15:40 BP 124 / 79; Pulse 65; Resp 19 S; Pulse Ox 100% on R/A; ca1 13:42 Body Mass Index 37.12 (104.33 kg, 167.64 cm) la1 ED Course: 13:37 Patient arrived in ED. ss4 13:42 Triage completed. la1 13:43 Anoop Cid MD is Attending Physician. maddie 13:43 Arm band placed on left wrist. la1 13:45 Patient has correct armband on for positive identification. Bed in low position. Call ca1 light in reach. Side rails up X 1. Pulse ox on. NIBP on. Warm blanket given. 13:48 Shelbi Ro, RN is Primary Nurse. ca1 13:55 Urine collected: clean catch specimen, clear, amanda colored. jp3 15:02 Lumbar Spine (3 Views) XRAY In Process Unspecified. EDMS 15:02 XRAY Thoracic Spine (Ap/lat) In Process Unspecified. EDMS 16:02 No provider procedures requiring assistance completed. Patient did not have IV access ca1 during this emergency room visit. Administered Medications: 14:15 Drug: Motrin 600 mg Route: PO; ca1 15:23 Follow up: Response: No adverse reaction; Pain is decreased ca1 14:16 Drug: Valium 5 mg Route: PO; ca1 15:23 Follow up: Response: No adverse reaction; Pain is decreased ca1 Outcome: 15:48 Discharge ordered by . [facility] 15:55 Discharged to home ambulatory. ca1 15:55 Condition: stable 15:55 Discharge instructions given to patient, Instructed on discharge instructions, follow up and referral plans. medication usage, Demonstrated understanding of instructions, follow-up care, medications, Prescriptions given X 3. 16:03 Patient left the ED. ca1 Signatures: Dispatcher [employer] Anoop Huddleston MD MD cha Attema, Lee, RN RN Usama Sheffield jp3 Shelbi Ro, RN RN Lin Ren[place] 4
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
== END 2018-05-16 16:03 | disposition home or self-care (01) ==
LOC: ER 13:35
DX: S29.012A Strain of muscle and tendon of back wall of thorax, initial encounter (principal); V49.40XA Driver injured in collision with unspecified motor vehicles in traffic accident, initial encounter
CPT/HCPCS: 72070; 72100; 81003; 99284

== ENCOUNTER 2020-01-26 03:55 | Emergency (ER) | payer BC ==
[2020-01-26 04:52] LABS: Absolute Lymphocytes (CBC) 1.3 K/uL (0.7-4.9); Hematocrit 41.9 % (39.6-49.0); Lymphocytes % 14.5 % (15.3-44.8); MPV 11.7 fL (7.6-11.3); RBC Red Blood Cell Count 4.53 M/uL (4.33-5.43)
[2020-01-26 05:05] LABS: Albumin 3.5 g/dL (3.4-5.0); Bilirubin Direct 0.1 mg/dL (0-0.2); Bilirubin Total 0.5 mg/dL (0.2-1.0); Potassium 4.1 mmol/L (3.5-5.1); Protein, Total 7.3 g/dL (6.4-8.2)
--- NOTE | 2020-01-26 05:48 | EDPHYS ---
Physician Documentation [facility] Name: Day Ortez Age: 49 yrs Sex: Male : 1970 Arrival Date: 01/26/2020 Time: 04:01 Bed 2 Private MD: ED Physician Gorge Matthews HPI: 01/25 04:14 This 49 yrs old Male presents to ER via EMS with complaints of Back Pain. mh7 04:15 The patient complains of pain in the left flank. The pain does not radiate. Onset: The mh7 symptoms/episode began/occurred 1 month(s) ago, and became worse yesterday. Modifying factors: The symptoms are alleviated by nothing. the symptoms are aggravated by movement, palpation/percussion. Associated signs and symptoms: Pertinent negatives: diarrhea, dizziness, dysuria, fever, urinary frequency, headache, hematuria, nausea, pain radiating to the lower extremities, vomiting. Severity of pain: At its worst the pain was severe today, in the emergency department the pain has improved markedly. Historical: - Allergies: 04:09 No Known Allergies; ea - PMHx: 04:09 H-pylori; ea - Immunization history:: Adult Immunizations up to date. - Social history:: Smoking status: Patient denies any tobacco usage or history of. ROS: 04:15 Constitutional: Negative for fever, chills, and weight loss, Eyes: Negative for injury, mh7 pain, redness, and discharge, ENT: Negative for injury, pain, and discharge, Neck: Negative for injury, pain, and swelling, Cardiovascular: Negative for chest pain, palpitations, and edema, Respiratory: Negative for shortness of breath, cough, wheezing, and pleuritic chest pain, Abdomen/GI: Negative for abdominal pain, nausea, vomiting, diarrhea, and constipation, : Negative for injury, bleeding, discharge, and swelling, MS/Extremity: Negative for injury and deformity, Skin: Negative for injury, rash, and discoloration, Neuro: Negative for headache, weakness, numbness, tingling, and seizure, Psych: Negative for depression, anxiety, suicide ideation, homicidal ideation, and hallucinations, Allergy/Immunology: Negative for hives, rash, and allergies, Endocrine: Negative for neck swelling, polydipsia, polyuria, polyphagia, and marked weight changes, Hematologic/Lymphatic: Negative for swollen nodes, abnormal bleeding, and unusual bruising. Exam: 04:15 Constitutional: This is a well developed, well nourished patient who is awake, alert, mh7 and in no acute distress. Head/Face: Normocephalic, atraumatic. Eyes: Pupils equal round and reactive to light, extra-ocular motions intact. Lids and lashes normal. Conjunctiva and sclera are non-icteric and not injected. Cornea within normal limits. Periorbital areas with no swelling, redness, or edema. Neck: Trachea midline, no thyromegaly or masses palpated, and no cervical lymphadenopathy. Supple, full range of motion without nuchal rigidity, or vertebral point tenderness. No Meningismus. Chest/axilla: Normal chest wall appearance and motion. Nontender with no deformity. No lesions are appreciated. Cardiovascular: Regular rate and rhythm with a normal S1 and S2. No gallops, murmurs, or rubs. Normal PMI, no JVD. No pulse deficits. Respiratory: Lungs have equal breath sounds bilaterally, clear to auscultation and percussion. No rales, rhonchi or wheezes noted. No increased work of breathing, no retractions or nasal flaring. 04:15 Skin: Warm, dry with normal turgor. Normal color with no rashes, no lesions, and no evidence of cellulitis. MS/ Extremity: Pulses equal, no cyanosis. Neurovascular intact. Full, normal range of motion. Neuro: Awake and alert, GCS 15, oriented to person, place, time, and situation. Cranial nerves II-XII grossly intact. Motor strength 5/5 in all extremities. Sensory grossly intact. Cerebellar exam normal. Normal gait. Psych: Awake, alert, with orientation to person, place and time. Behavior, mood, and affect are within normal limits. 04:15 Abdomen/GI: Inspection: obese Bowel sounds: normal, in all quadrants, Palpation: abdomen is soft and non-tender, in all quadrants, Rectal exam: the exam is deferred, because of patient request, Indicators: McBurney's point is not tender, Berrios's sign is negative, Rovsing's sign is negative, Obturator sign is negative, Psoas sign is negative, Liver: no appreciated palpable abnormalities, Hernia: not appreciated. 04:15 Back: pain, that is mild, ROM is painful, with all movement, normal spinal alignment noted, CVA tenderness, that is moderate, is noted on the left, vertebral tenderness, is not appreciated, muscle spasm, is appreciated in the left flank, Straight leg raises: of both lower extremities does not illicit pain. Vital Signs: 04:03 BP 158 / 91; Pulse 67; Resp 18; Temp 97.7; Pulse Ox 98% ; ea 05:21 BP 131 / 71; Pulse 60; Resp 18; Pulse Ox 96% ; ea MDM: 05:45 Differential diagnosis: nephrolithiasis, pyelonephritis, UTI, ruptured AAA, dissecting mh7 AAA. Data reviewed: vital signs, nurses notes, EMS record, old medical records, lab test result(s), CBC, electrolytes, urinalysis, radiologic studies, CT scan. Data interpreted: Pulse oximetry: on room air is 96 %. Interpretation: normal. Counseling: I had a detailed discussion with the patient and/or guardian regarding: the historical points, exam findings, and any diagnostic results supporting the discharge/admit diagnosis, lab results, radiology results, the need for outpatient follow up, a urologist. Response to treatment: the patient's symptoms have resolved after treatment, the patient's blood pressure is in an acceptable range, mental status has returned to baseline, the patient no longer shows bradycardia, the patient is not short of breath, the patient is not tachycardic, the patient's pain is gone, the patient's temperature has normalized, the patient is now symptom free, patient is well hydrated. 05:47 Patient medically screened. [email or web address] 01/25 04:13 Order name: Basic Metabolic Panel; Complete Time: 05:12 [facility] 01/25 04:13 Order name: CBC with Diff; Complete Time: 05:02 [facility] 01/25 04:13 Order name: Hepatic Function; Complete Time: 05:12 [facility] 01/25 04:13 Order name: Lipase; Complete Time: 05:12 [facility] 01/25 04:13 Order name: CT Stone Protocol [facility] 01/25 05:38 Order name: Urine Dipstick--Ancillary (enter results) [facility] 01/25 04:13 Order name: IV Saline Lock; Complete Time: 04:19 [facility] 01/25 04:13 Order name: Labs collected and sent; Complete Time: 04:19 [facility] 01/25 04:13 Order name: Urine Dipstick-Ancillary (obtain specimen); Complete Time: 05:37 mh7 Administered Medications: No medications were administered Disposition: 01/26/20 05:47 Discharged to Home. Impression: Left Nephrolithiasis. - Condition is Stable. - Discharge Instructions: Kidney Stones, Bwig-ag-Jzyi. - Prescriptions for ketorolac 10 mg Oral tablet - take 1 tablet by ORAL route every 8 hours As needed not to exceed 40 mg in 24hrs; 15 tablet. - Medication Reconciliation Form, Thank You Letter, Antibiotic Education, Prescription Opioid Use form. - Follow up: Private Physician; When: 1 - 2 days; Reason: Worsening of condition, Recheck today's complaints, Continuance of care, Re-evaluation by your physician. Follow up: Chi Rose MD; When: 2 - 3 days; Reason: Worsening of condition, Recheck today's complaints, Continuance of care. - Problem is new. - Symptoms are resolved. Signatures: Dispatcher [employer] EDBhavana Kelley RN RN ea Vicente, Ronaldo, RN RN rv Holmes, Maurice, MD MD 7 Corrections: (The following items were deleted from the chart) 06:03 05:47 01/26/2020 05:47 Discharged to Home. Impression: Left Nephrolithiasis. Condition rv is Stable. Forms are Medication Reconciliation Form, Thank You Letter, Antibiotic Education, Prescription Opioid Use. Follow up: Private Physician; When: 1 - 2 days; Reason: Worsening of condition, Recheck today's complaints, Continuance of care, Re-evaluation by your physician. Follow up: Chi Rose; When: 2 - 3 days; Reason: Worsening of condition, Recheck today's complaints, Continuance of care. Problem is new. Symptoms are resolved. [email or web address]
--- NOTE | 2020-01-26 05:48 | ER ---
Nurse's Notes [facility] Name: Day Ortez Age: 49 yrs Sex: Male : 1970 Arrival Date: 01/26/2020 Time: 04:01 Bed 2 Private MD: Diagnosis: Left Nephrolithiasis Presentation: 01/25 04:03 Chief complaint: EMS states: Pt complaining of severe left lower back pain, EMS ea initiated 18 G to left AC was given toradol 30 mg IVP and a total of fentanyl 100 mcg IVP. Pt reports pain has subsided. Coronavirus screen: At this time, the client does not indicate any symptoms associated with coronavirus-19. Ebola Screen: No symptoms or risks identified at this time. 04:03 Method Of Arrival: EMS: [facility] ea 04:07 Initial Sepsis Screen: Does the patient meet any 2 criteria? No. Patient's initial ea sepsis screen is negative. Does the patient have a suspected source of infection? No. Patient's initial sepsis screen is negative. Risk Assessment: Do you want to hurt yourself or someone else? Patient reports no desire to harm self or others. Onset of symptoms was January 26, 2020. 04:07 Acuity: BRANNON 3 ea Triage Assessment: 04:08 General: Appears uncomfortable, Behavior is appropriate for age. Pain: Complains of ea pain in lumbar area. Neuro: Level of Consciousness is awake, alert, obeys commands, Oriented to person, place, time, situation. Cardiovascular: Patient's skin is warm and dry. Respiratory: Airway is patent Respiratory effort is even, unlabored, Respiratory pattern is regular, symmetrical. Derm: Skin is pink, warm \T\ dry. Musculoskeletal: Circulation, motion, and sensation intact. Historical: - Allergies: 04:09 No Known Allergies; ea - PMHx: 04:09 H-pylori; ea - Immunization history:: Adult Immunizations up to date. - Social history:: Smoking status: Patient denies any tobacco usage or history of. Screenin:07 Abuse screen: Denies threats or abuse. Nutritional screening: No deficits noted. ea Tuberculosis screening: No symptoms or risk factors identified. Fall Risk IV access (20 points). Assessment: 04:08 Reassessment: see triage assessment. ea 04:23 Reassessment: Patient and/or family updated on plan of care and expected duration. Pain ea level reassessed. Patient is alert, oriented x 3, equal unlabored respirations, skin warm/dry/pink. Pt taken to CT. 05:20 Reassessment: Patient and/or family updated on plan of care and expected duration. Pain ea level reassessed. Patient is alert, oriented x 3, equal unlabored respirations, skin warm/dry/pink. 06:01 Reassessment: Patient and/or family updated on plan of care and expected duration. Pain ea level reassessed. Patient is alert, oriented x 3, equal unlabored respirations, skin warm/dry/pink. Discharge instruction given to patient, verbalized the understanding of instruction. Pt left ED ambulatory tolerating well. Vital Signs: 04:03 BP 158 / 91; Pulse 67; Resp 18; Temp 97.7; Pulse Ox 98% ; ea 05:21 BP 131 / 71; Pulse 60; Resp 18; Pulse Ox 96% ; ea ED Course: 04:01 Patient arrived in ED. ea 04:02 Gorge Matthews MD is Attending Physician. [facility] 04:07 Triage completed. ea 04:07 Arm band placed on right wrist. Patient placed in an exam room, on a stretcher, on ea pulse oximetry. 04:08 Patient has correct armband on for positive identification. Bed in low position. Call ea light in reach. 04:12 Bhavana Vences, ADIA is Primary Nurse. ea 04:37 CT Stone Protocol In Process Unspecified. EDNY 05:46 Chi Rose MD is Referral Physician. [facility] 05:50 Maintain EMS IV. Dressing intact. Good blood return noted. Site clean \T\ dry. ea 06:02 No provider procedures requiring assistance completed. IV discontinued, intact, ea bleeding controlled, No redness/swelling at site. Pressure dressing applied. Administered Medications: No medications were administered Outcome: 05:47 Discharge ordered by . [facility] 06:02 Discharged to home ambulatory, with family. ea 06:02 Condition: stable 06:02 Discharge instructions given to patient, Instructed on discharge instructions, follow up and referral plans. medication usage, Demonstrated understanding of instructions, follow-up care, medications, Prescriptions given X 1. 06:03 Patient left the ED. rv Signatures: Dispatcher [employer] EDNY Bhavana Vences RN RN Baljeet Hodge, ADIA RN Gorge Javier, MD PIÑA mh7
[2020-01-26 05:51] LABS: Urine Blood NEGATIVE (NEG); Urine Glucose NEGATIVE (NEG); Urine Protein NEGATIVE (NEG); Urine Specific Gravity 1.025 (1.005-1.030)
--- NOTE | 2020-01-26 11:50 | RAD REPORT ---
EXAM DESCRIPTION: CT Abdomen and Pelvis Without Intravenous Contrast CLINICAL HISTORY: The patient is 49 years old and is Male; FLANK PAIN TECHNIQUE: Axial computed tomography images of the abdomen and pelvis without intravenous contrast. Sagittal and coronal reformatted images were created and reviewed. This CT exam was performed usi ng one or more of the following dose reduction techniques: automated exposure control, adjustment o f the mA and/or kV according to patient size, and/or use of iterative reconstruction technique. COMPARISON: No relevant prior studies available. FINDINGS: Lung bases: Unremarkable. No mass. No consolidation. Mediastinum: Moderately sized hiatal hernia. ABDOMEN: Liver: Fatty liver. Gallbladder and bile ducts: Unremarkable. No calcified stones. No ductal dilation. Pancreas: Unremarkable. No ductal dilation. Spleen: Unremarkable. No splenomegaly. Adrenals: 2.0 cm left adrenal adenoma. No imaging follow-up recommended. Right adrenal gland is unremarkable. Kidneys and ureters: Punctate left nephrolithiasis. No hydronephrosis or ureter stone. Right kidney is unremarkable. Stomach and bowel: No bowel dilatation or obstruction. No bowel wall thickening. PELVIS: Appendix: The visualized appendix is normal. No pericecal inflammation to suggest acute appendic itis. Bladder: 2 mm calculus in the bladder. No bladder wall thickening. Reproductive: Unremarkable as visualized. ABDOMEN and PELVIS: Intraperitoneal space: Unremarkable. No free air. No significant fluid collection. Bones/joints: Degenerative changes in the spine. No acute fracture. No dislocation. Soft tissues: Unremarkable. Vasculature: Unremarkable. No abdominal aortic aneurysm. Lymph nodes: No pathologically enlarged lymph nodes. IMPRESSION: 1. Punctate left nephrolithiasis. No hydronephrosis or ureter stone. 2. 2 mm calculus in the bladder. 3. Fatty liver. 4. Moderately sized hiatal hernia. 5. Additional non-emergent findings as above. 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 The interpreting r adiologist is fully responsible for the content of the report.
[2020-01-27 09:38] VITALS: TEMP 97.7
[2020-01-27 09:39] VITALS: BP 131/71; O2SAT 96
== END 2020-01-26 06:03 | disposition home or self-care (01) ==
LOC: ER 03:55
DX: N20.0 Calculus of kidney (principal)
CPT/HCPCS: 36415; 74176; 76377; 80048; 80076; 81003; 83690; 85025; 99284

== ENCOUNTER 2020-06-02 10:04 | Emergency (ER) | payer BC, SELFPAY ==
[2020-06-02 13:09] LABS: Absolute Lymphocytes (CBC) 1.1 K/uL (0.7-4.9); Basophils % 1.5 % (0-1.3); Hematocrit 22.3 % (39.6-49.0); Lymphocytes % 16.3 % (15.3-44.8); MPV 9.4 fL (7.6-11.3); RBC Red Blood Cell Count 3.44 M/uL (4.33-5.43)
[2020-06-02 13:32] LABS: ALT/SGPT 72 U/L (12-78); AST/SGOT 40 U/L (15-37); Albumin 3.5 g/dL (3.4-5.0); Alkaline Phosphatase 89 U/L (45-117); Anisocytosis 2+; BUN Blood Urea Nitrogen 14 mg/dL (7-18); Bicarbonate 25 mmol/L (21-32); Bilirubin Total 0.6 mg/dL (0.2-1.0); Blood Morphology Comment NOTED (NOT SEEN); Ferritin 2.8 ng/mL (26-388); Glucose Level 172 mg/dL (74-106); Hypochromasia 2+; Platelet Estimate ADEQ; Protein, Total 7.5 g/dL (6.4-8.2); Sodium Level 139 mmol/L (136-145); Transferrin 346 mg/dL (200-360)
[2020-06-02] MEDS ORDERED: ACETAMINOPHEN 325 MG TABLET ONE (16:24)
[2020-06-02] MEDS ORDERED: DIPHENHYDRAMINE 50 MG/ML VIAL ONE (16:24)
[2020-06-02] MEDS ORDERED: HYDROCORTISONE SUC 100 MG INJ ONE (16:24)
[2020-06-02] MEDS ORDERED: NA CHLORIDE 0.9% 250 ML ONE ×2 (16:24→20:39)
[2020-06-03 00:16] LABS: Hematocrit 25.7 % (39.6-49.0)
--- NOTE | 2020-06-03 00:54 | EDPHYS ---
Physician Documentation [facility] Name: Day Ortez Age: 50 yrs Sex: Male : 1970 Arrival Date: 06/02/2020 Time: 10:05 Bed 5 Private MD: ARNAUD Physician Anoop Cid HPI: 06/02 12:39 This 50 yrs old Male presents to ER via Ambulatory with complaints of Abnormal pm1 Lab Results. 12:39 Onset: The symptoms/episode began/occurred today. Associated signs and symptoms: The pm1 patient has no apparent associated signs or symptoms. Modifying factors: The patient symptoms are alleviated by nothing, the patient symptoms are aggravated by nothing. The patient has experienced a previous episode, approximately 3 years ago, anemia requiring blood transfusion. The patient has been recently seen by a physician: the patient's primary care provider, yesterday, with similar presenting complaints, Patient with generalized weakness and fatigue. Went to his PCP and got labs drawn yesterday. Instructed to report to the ER today due to low Hgb and possible need for blood transfusion. 12:39 Patient took iron supplementation on discharge 3 years ago when he presented with pm1 anemia and possible GI bleed. Patient stopped taking Fe supplementation once the prescription ran out. Patient has not had blood work in 3 years. Historical: - Allergies: 10:10 No Known Allergies; ll1 - PMHx: 10:10 H-pylori; ll1 - PSHx: 10:18 None; ss - Immunization history:: Client reports having NOT received the Covid vaccine. Flu vaccine is not up to date. - Social history:: Smoking status: Patient denies any tobacco usage or history of. ROS: 12:39 Eyes: Negative for injury, pain, redness, and discharge, ENT: Negative for injury, pm1 pain, and discharge, Neck: Negative for injury, pain, and swelling. 12:39 Cardiovascular: Negative for chest pain, palpitations, and edema, Respiratory: Negative for shortness of breath, cough, wheezing, and pleuritic chest pain, Back: Negative for injury and pain, MS/Extremity: Negative for injury and deformity, Skin: Negative for injury, rash, and discoloration. 12:39 Constitutional: Positive for fatigue, Negative for body aches, chills, fever, poor PO intake. 12:39 Abdomen/GI: Negative for abdominal pain, nausea, vomiting, and diarrhea, constipation, black/tarry stool, rectal pain, rectal bleeding. 12:39 Neuro: Positive for headache, on and off. Currently does not have a headache. Exam: 12:39 Constitutional: This is a well developed, well nourished patient who is awake, alert, pm1 and in no acute distress. Head/Face: Normocephalic, atraumatic. 12:39 Back: No spinal tenderness. No costovertebral tenderness. Full range of motion. Skin: Warm, dry with normal turgor. Normal color with no rashes, no lesions, and no evidence of cellulitis. MS/ Extremity: Pulses equal, no cyanosis. Neurovascular intact. Full, normal range of motion. 12:39 Eyes: Periorbital structures: no acute changes, Pupils: no acute changes, Extraocular movements: no acute changes, Conjunctiva: pale, bilaterally, Sclera: no acute changes, Lids and lashes: appear normal, bilaterally. 12:39 Cardiovascular: Exam negative for acute changes, Rate: normal, Rhythm: regular, Pulses: no pulse deficits are appreciated. 12:39 Respiratory: Exam negative for acute changes, respiratory distress, shortness of breath, Breath sounds: are clear throughout. 12:39 Neuro: Exam negative for acute changes, Orientation: is normal, Mentation: is normal, Motor: is normal, moves all fours, strength is normal. 13:39 Abdomen/GI: Rectal exam: Stool: brown, guaiac negative. pm1 13:39 Abdomen/GI: Rectal exam: Ayana RN as Heel Sander for rectal exam. pm1 Vital Signs: 10:14 BP 150 / 78; Pulse 87; Resp 17; Temp 98.7; Pulse Ox 100% ; Weight 108.86 kg; Height 5 ss ft. 5 in. (165.10 cm); Pain 0/10; 15:30 BP 145 / 75; Pulse 72; Resp 16; Pulse Ox 100% ; hb 16:40 BP 146 / 90; Pulse 70; Resp 18; Pulse Ox 100% ; sv 17:30 BP 133 / 72; Pulse 65; Resp 16; Pulse Ox 100% ; sv 18:30 BP 128 / 72; Pulse 72; Resp 16; Pulse Ox 100% ; sv 20:27 BP 122 / 64; Pulse 74; Resp 18; Pulse Ox 100% on R/A; mg2 22:00 BP 120 / 66; Pulse 70; Resp 18; Pulse Ox 99% on R/A; wh 23:00 BP 117 / 55; Pulse 73; Resp 18; Pulse Ox 98% on R/A; wh 06/03 00:30 BP 128 / 68; Pulse 67; Resp 18; Pulse Ox 99% on R/A; wh 06/02 10:14 Body Mass Index 39.94 (108.86 kg, 165.10 cm) ss MDM: 06/02 12:28 Patient medically screened. maddie 14:06 Counseling: I had a detailed discussion with the patient and/or guardian regarding: the pm1 historical points, exam findings, and any diagnostic results supporting the discharge/admit diagnosis, lab results, the need for outpatient follow up, Plan of care: Transfusion of two units of blood and discharge to follow up with his PCP regarding treatment of his anemia. Patient with negative hemoccult and no signs of bleeding. Will discharge home with Fe supplementation . 16:10 Data reviewed: vital signs. Data interpreted: Pulse oximetry: on room air is 100 %. pm1 Interpretation: normal. 06/02 12:38 Order name: CBC with Manual Differential; Complete Time: 14:00 pm1 06/02 12:38 Order name: CMP; Complete Time: 14:00 pm1 06/02 12:38 Order name: Iron Level; Complete Time: 14:00 pm1 06/02 12:38 Order name: TIBC; Complete Time: 14:00 pm1 06/02 12:47 Order name: Type And Screen sv 06/02 12:47 Order name: Type and Screen EDMS 06/02 13:35 Order name: Packed RBC Leukored EDTX 06/02 13:41 Order name: Occult Blood--Ancillary eb 06/02 13:41 Order name: Occult Blood--Ancillary EDMS 06/02 23:45 Order name: Hemoglobin; Complete Time: 00:52 cp 06/02 23:45 Order name: Hematocrit; Complete Time: 00:52 cp 06/02 12:38 Order name: IV Saline Lock; Complete Time: 13:46 pm1 06/02 13:31 Order name: Transfuse; Complete Time: 13:46 pm1 Administered Medications: 16:40 Drug: Tylenol 650 mg Route: PO; hb 06/03 01:01 Follow up: Response: No adverse reaction 06/02 16:40 Drug: Benadryl (diphenhydrAMINE) 12.5 mg Route: IVP; Site: left antecubital; hb 06/03 01:01 Follow up: Response: No adverse reaction 06/02 16:40 Drug: Solu-CORTEF (hyrdoCORTISONE) 50 mg Route: IVP; Site: left antecubital; hb 06/03 01:01 Follow up: Response: No adverse reaction Disposition: 08:06 Co-signature as Attending Physician, Anoop Cid MD I agree with the assessment and [facility] plan of care. Disposition: 06/03/20 00:53 Discharged to Home. Impression: Anemia, unspecified. - Condition is Stable. - Discharge Instructions: Anemia, Nonspecific, Blood Transfusion, Adult. - Prescriptions for Ferrous Sulfate 325 mg (65 mg Iron) Oral Tablet - take 1 tablet by ORAL route every 8 hours; 90 tablet. - Medication Reconciliation Form, Thank You Letter, Antibiotic Education, Prescription Opioid Use form. - Follow up: Emergency Department; When: As needed; Reason: Worsening of condition. Follow up: Private Physician; When: 2 - 3 days; Reason: Recheck today's complaints, Continuance of care, Re-evaluation by your physician. - Problem is new. - Symptoms have improved. Signatures: Dispatcher [employer] EDTX Anoop Cid MD MD cha Smirch, Shelby RN RN Anoop Turner PA PA cp Master Cardona, AD OPERATIONS ASSOCIATE AD OPERATIONS ASSOCIATE pm1 Ayana Coker RN RN Veronica John RN RN Meaghan Mancia RN RN ll1 Corrections: (The following items were deleted from the chart) 06/02 12:40 12:39 FERRITIN+C.LAB.BRZ ordered. EDTX EDMS 23:46 23:46 Hemoglobin+H.LAB.BRZ ordered. EDTX EDMS 23:46 23:46 Hematocrit+H.LAB.BRZ ordered. [facility] EDTX 06/03 01:09 00:53 06/03/2020 00:53 Discharged to Home. Impression: Anemia, unspecified. Condition wh is Stable. Discharge Instructions: Anemia, Nonspecific, Blood Transfusion, Adult. Prescriptions for Ferrous Sulfate 325 mg (65 mg Iron) Oral Tablet - take 1 tablet by ORAL route every 8 hours; 90 tablet. and Forms are Medication Reconciliation Form, Thank You Letter, Antibiotic Education, Prescription Opioid Use. Follow up: Emergency Department; When: As needed; Reason: Worsening of condition. Follow up: Private Physician; When: 2 - 3 days; Reason: Recheck today's complaints, Continuance of care, Re-evaluation by your physician. Problem is new. Symptoms have improved. cp
--- NOTE | 2020-06-03 00:54 | ER ---
Nurse's Notes [facility] Name: Day Ortez Age: 50 yrs Sex: Male : 1970 Arrival Date: 06/02/2020 Time: 10:05 Bed 5 Private MD: Diagnosis: Anemia, unspecified Presentation: 06/02 10:14 Chief complaint: Patient states: BUENO off/on for a few weeks. Fatigues easily. Had blood ss drawn yesterday, was told to come to ED for possible blood transfusion. HGB 6 range per daughter. Coronavirus screen: Client denies travel out of the [place] in the last 14 days. At this time, the client does not indicate any symptoms associated with coronavirus-19. Ebola Screen: Patient denies travel to an Ebola-affected area in the 21 days before illness onset. Initial Sepsis Screen: Does the patient meet any 2 criteria? No. Patient's initial sepsis screen is negative. Does the patient have a suspected source of infection? No. Patient's initial sepsis screen is negative. Risk Assessment: Do you want to hurt yourself or someone else? Patient reports no desire to harm self or others. Onset of symptoms was May 10, 2020. 10:14 Method Of Arrival: Ambulatory ss 10:14 Acuity: BRANNON 3 ss Historical: - Allergies: 10:10 No Known Allergies; ll1 - PMHx: 10:10 H-pylori; ll1 - PSHx: 10:18 None; ss - Immunization history:: Client reports having NOT received the Covid vaccine. Flu vaccine is not up to date. - Social history:: Smoking status: Patient denies any tobacco usage or history of. Screenin:50 Abuse screen: Denies threats or abuse. Denies injuries from another. Nutritional sv screening: No deficits noted. Tuberculosis screening: No symptoms or risk factors identified. Fall Risk None identified. Assessment: 13:00 General: Appears in no apparent distress. Behavior is calm, cooperative. Pain: Denies hb pain. Neuro: Level of Consciousness is awake, alert, obeys commands, Oriented to person, place, time, situation. Cardiovascular: Patient's skin is warm and dry. Respiratory: Respiratory effort is even, unlabored, Respiratory pattern is regular, symmetrical. GI: No signs and/or symptoms were reported involving the gastrointestinal system. : No signs and/or symptoms were reported regarding the genitourinary system. EENT: No signs and/or symptoms were reported regarding the EENT system. Derm: Skin is pink, warm \T\ dry. Musculoskeletal: No signs and/or symptoms reported regarding the musculoskeletal system. 14:00 Reassessment: Patient appears in no apparent distress at this time. Patient and/or hb family updated on plan of care and expected duration. Pain level reassessed. Patient is alert, oriented x 3, equal unlabored respirations, skin warm/dry/pink. 15:00 Reassessment: Patient appears in no apparent distress at this time. Patient and/or hb family updated on plan of care and expected duration. Pain level reassessed. Patient is alert, oriented x 3, equal unlabored respirations, skin warm/dry/pink. 16:00 Reassessment: Patient appears in no apparent distress at this time. Patient and/or hb family updated on plan of care and expected duration. Pain level reassessed. Patient is alert, oriented x 3, equal unlabored respirations, skin warm/dry/pink. 16:45 Reassessment: First unit PRBCs started, see transfusion flowsheet. hb 17:45 Reassessment: Patient appears in no apparent distress at this time. No changes from hb previously documented assessment. Patient and/or family updated on plan of care and expected duration. Pain level reassessed. Patient is alert, oriented x 3, equal unlabored respirations, skin warm/dry/pink. 18:45 Reassessment: Blood continues, NAD, VSS, daughter remains at bedside. hb 19:15 Reassessment: Patient appears in no apparent distress at this time. Patient and/or wh family updated on plan of care and expected duration. Pain level reassessed. Patient is alert, oriented x 3, equal unlabored respirations, skin warm/dry/pink. 20:28 Reassessment: Patient appears in no apparent distress at this time. Patient and/or mg2 family updated on plan of care and expected duration. Pain level reassessed. Patient is alert, oriented x 3, equal unlabored respirations, skin warm/dry/pink. 22:00 Reassessment: Patient appears in no apparent distress at this time. Patient and/or wh family updated on plan of care and expected duration. Pain level reassessed. Patient is alert, oriented x 3, equal unlabored respirations, skin warm/dry/pink. 23:30 Reassessment: Patient appears in no apparent distress at this time. Patient and/or family updated on plan of care and expected duration. Pain level reassessed. Patient is alert, oriented x 3, equal unlabored respirations, skin warm/dry/pink. Vital Signs: 10:14 BP 150 / 78; Pulse 87; Resp 17; Temp 98.7; Pulse Ox 100% ; Weight 108.86 kg; Height 5 ss ft. 5 in. (165.10 cm); Pain 0/10; 15:30 BP 145 / 75; Pulse 72; Resp 16; Pulse Ox 100% ; hb 16:40 BP 146 / 90; Pulse 70; Resp 18; Pulse Ox 100% ; sv 17:30 BP 133 / 72; Pulse 65; Resp 16; Pulse Ox 100% ; sv 18:30 BP 128 / 72; Pulse 72; Resp 16; Pulse Ox 100% ; sv 20:27 BP 122 / 64; Pulse 74; Resp 18; Pulse Ox 100% on R/A; mg2 22:00 BP 120 / 66; Pulse 70; Resp 18; Pulse Ox 99% on R/A; wh 23:00 BP 117 / 55; Pulse 73; Resp 18; Pulse Ox 98% on R/A; 06/03 00:30 BP 128 / 68; Pulse 67; Resp 18; Pulse Ox 99% on R/A; 06/02 10:14 Body Mass Index 39.94 (108.86 kg, 165.10 cm) ED Course: 06/02 10:05 Patient arrived in ED. ds1 10:10 Arm band placed on. ll1 10:17 Triage completed. ss 12:28 Master Cardona NP is PHCP. pm1 12:28 Anoop Cid MD is Attending Physician. pm1 12:50 Patient has correct armband on for positive identification. Placed in gown. Bed in low sv position. Call light in reach. Adult w/ patient. Pulse ox on. NIBP on. Door closed. Head of bed elevated. 12:50 Inserted saline lock: 20 gauge in left antecubital area, using aseptic technique. sv ,using aseptic technique. done by Ayana CHEEK Blood collected. 13:45 Alana Segundo RN is Primary Nurse. 13:45 Occult Blood--Ancillary Sent. ss 13:46 Type And Screen Sent. ss 13:57 Primary Nurse role handed off by Alana Segundo RN hb 13:57 Ayana Coker RN is Primary Nurse. hb 20:15 Primary Nurse role handed off by Ayana Coker RN tt3 23:45 PHCP role handed off by Master Cardona NP 23:45 Anoop Turner PA is PHCP. 06/03 00:11 No provider procedures requiring assistance completed. mg2 01:09 IV discontinued, intact, bleeding controlled, No redness/swelling at site. Administered Medications: 06/02 16:40 Drug: Tylenol 650 mg Route: PO; 06/03 01:01 Follow up: Response: No adverse reaction 06/02 16:40 Drug: Benadryl (diphenhydrAMINE) 12.5 mg Route: IVP; Site: left antecubital; 06/03 01:01 Follow up: Response: No adverse reaction 06/02 16:40 Drug: Solu-CORTEF (hyrdoCORTISONE) 50 mg Route: IVP; Site: left antecubital; hb 06/03 01:01 Follow up: Response: No adverse reaction Medication: 06/02 20:25 Blood products: PRBCs X 1 unit given. Outcome: 06/03 00:53 Discharge ordered by MD. 01:08 Discharged to home ambulatory, with family. 01:08 Condition: stable 01:08 Discharge instructions given to patient, family, Instructed on discharge instructions, follow up and referral plans. medication usage, POC Demonstrated understanding of instructions, follow-up care, medications, POC Prescriptions given X 1. 01:09 Patient left the ED. Signatures: Lin Buenrostro RN RN Hillary Dao ds1 Alana Segundo RN RN ss Anoop Turner PA PA Master Cardona NP SENIOR TELECOMMUNICATIONS CONSULTANT pm1 Ayana Coker RN RN Veronica John RN RN Ranjeet Ricardo RN RN [facility] Meaghan Mancia RN RN ll1 Adarsh Simms tt3 Corrections: (The following items were deleted from the chart) 06/02 17:16 16:30 BP 145 / 75; Pulse 72bpm; Resp 16bpm; Pulse Ox 100%; sv hb
[2020-06-03 01:15] VITALS: TEMP 98.7
[2020-06-03 01:26] VITALS: BP 128/68; O2SAT 99
== END 2020-06-03 01:09 | disposition home or self-care (01) ==
LOC: ER 10:04
PROC: 30233N1 Transfusion of Nonautologous Red Blood Cells into Peripheral Vein, Percutaneous Approach (ICD-10-PCS; principal; 2020-06-03)
DX: D64.9 Anemia, unspecified (principal)
CPT/HCPCS: 36415; 36430; 80053; 82728; 83540; 84466; 85014; 85018; 85025; 86850; 86900; 86901; 96374; 96375; 99285; J1200; J1720; J7050; P9016

== ENCOUNTER → 2023-04-15 | Emergency (ER) | payer BC, SELFPAY ==
--- OUTSIDE RECORDS SUMMARY | 2023-04-15 19:46 | XMS REPORT | Continuity of Care Document ---
Author Name Unknown Address [address] [facility] [address] [place] [address] [facility] thconnect Address [address] [facility] [place] [address] Care Team Providers Care Res Habilitation Assistant Name Role Phone PCP, PATIENT DOES NOT HAVE A Primary Care Physic skyler Unavailable CHARAN MCCONNELL Attending Clinician Unavailable Charan Mcconnell MD Attending Clinician [phone] CHARAN MCCONNELL Admitting Clinician Unavailable Payers Payer Name Policy Type Policy Number Effective Date Expirati on Date Source [facility] [id number] 2020 00:00:00 Allergies, Adverse Reactions, Alerts Allergy Name Allergy Type Status Severity Reaction(s) Onset Date Inactive Date Treating Clinician Comments Source NO KNOWN ALLERGIE S Drug Class Active [facility] Social History Social Habit Start Date Stop Date Quantity Comments Source Exposure to SARS-CoV-2 (event) Not sure [facility] Sex Assigned At 1970 00:00:00 1970 00:[birth year]:00 [facility] Smoking Status Start Date Stop Date Source Unknown if ever smoked [facility] Medications Ordered Medication Name Filled Medication Name Start Date Stop Date Current Medication? Ordering Clinician Indication Dosage Frequency Signature (SIG) Comments Components Source morpHINE injection 4 mg 04-19 06:00: 00 04-19 05:14 :00 No 4mg 4 mg, Slow IV Push, ONCE, 1 dose, On Thu04/19/21 at 0000, STAT [facility] ondansetron (ZOFRAN (PF)) injection 4 mg 04-19 06:00: 00 04-19 05:14 :00 No 4mg 4 mg, Slow IV Push, ONCE, 1 dose, On 04/19/21 at 0000, DAMI [facility] ketorolac (TORADOL) injection 30 mg 04-19 04:15: 00 04-19 03:24 :00 No 30mg 30 mg, Slow IV Push, ONCE, 1 dose, On Cathy 04/18/21 at 2215, DAMI
Fa culty member approving Restricted medication : CHARAN MCCONNELL [facility] traMADoL 50 mg tablet 04-18 00:00: 00 Yes [id number] 50mg Take 1 tablet by mouth every 6 (six) hours as needed for Pain (scale 4-6). Indication s: acute pain [facility] ondansetron 4 mg disintegrat ing tablet 04-18 00:00: 00 Yes [id number] 4mg Take 1 tablet by mouth every 4 (four) hours as needed for Nausea and Vomiting (N/V). [facility] tamsulosin 0.4 mg 24 hr capsule 04-18 00:00: 00 Yes [id number] .4mg Take 1 capsule by mouth at bedtime. [facility] ketorolac 10 mg tablet 04-18 00:00: 00 Yes [id number] 10mg Take 1 tablet by mouth every 8 (eight) hours. [facility] Vital Signs Vital Name Observation Time Observation Value Comments S ource Systolic blood pressure 2021-04-19 05:14:51 155 mm[Hg] [facility] Diastolic blood pressure 2021-04-19 05:14:51 98 mm[Hg] [facility] Heart rate 2021-04-19 05:14:51 58 /min [facility] Respiratory rate 2021-04-19 05:14:51 17 /min [facility] Oxygen saturation in Arterial blood by Pulse oximetry 2021-04-19 05:14:51 97 /min [facility] Body temperature 2021-04-19 02:33:00 37.56 [facility] Body height 2021-04-19 02:33:00 165.1 cm [facility] Body weight 2021-04-19 02:33:00 101.152 kg [facility] BMI 2021-04-19 02:33:00 37.11 kg/m2 [facility] Procedures Procedure Date / Time Performed Performing Clinicia n Source XR CHEST 1 VW 2021-04-19 03:55:52 Charan Mcconnell [facility] XR RIBS 4+ VW LEFT 2021-04-19 03:55:52 Charan Mcconnell [facility] CT ABDOMEN PELVIS WO CONTRAST 2021-04-19 03:42:00 Charan Mcconnell [facility] LIPASE 2021-04-19 03:24:00 Charan Mcconnell [facility] COMP. METABOLIC PANEL ([id number]) 2021-04-19 03:24:00 Charan Mcconnell [facility] CBC WITH DIFF 2021-04-19 03:24:00 Charan Mcconnell [facility] URINALYSIS 2021-04-19 03:23:00 Charan Mcconnell [facility] NOTICE OF PRIVACY PRACTICES 2021-04-19 02:17:28 Doctor Unassigned, [place] [facility] CONSENT/REFUSAL FOR DIAGNOSIS AND TREATMENT 2021-04-19 02:17:00 Doctor Unassigned, [place] [facility] Encounters Start Date/Time End Date/Time Encounter Type Admission Type Attending [facility] Care Facility Care Department Encounter ID Source 2022-03-31 17:18:39 2022-03-31 17:18:[address] [facility] [id number] John Meraz Jesus 2022-03-19 13:16:58 2022-03-19 13:16:[address] [facility] [id number] John F Jesus 2021-04-18 20:38:00 2021-04-18 23:24:00 Emergency X CHARAN MCCONNELL [facility] ERT [id number] [facility] 2021-04-18 20:38:00 2021-04-18 23:24:00 Emergency Charan Mcconnell [facility] [id number] [facility] Results Test Description Test Time Test Comments Results Result Co mments Source [facility] 03:44:51* Test Item Value Reference Range Interpretation Comme nts LIPASE (test code = 8273964130) 203 U/L 0-220 Lab Interpretation (test cod e = 27453-6) Normal [facility] [id number] 03:34:08* Test Item Value Reference Range Interpretation Comme nts WBC (test code = 6690-2) See_Comment [Automated messa ge] The system which generated this result transmitted reference range: 4.20 - 10.70 10*3/?L. The reference range was not used to interpret this result as normal/abnormal. RBC (test code = 789-8) See_Comment [Automated messa ge] The system which generated this result transmitted reference range: 4.26 - 5.52 10*6/?L. The reference range was not used to interpret this result as normal/abnormal. HGB (test code = 718-7) 13.0 g/dL 12.2-16.4 HCT (test code = 4544-3) 42.2 % 38.4-49.3 MCV (test code = 787-2) 87.6 fL 81.7-95.6 MCH (test code = 785-6) 27.0 pg 26.1-32.7 MCHC (test code = 786-4) 30.8 g/dL 31.2-35.0 L RDW-SD (test code = 07613-8) 43.9 fL 38.5-51.6 RDW-CV (test code = 788-0) 13.7 % 12.1-15.4 PLT (test code = 777-3) See_Comment [Automated messa ge] The system which generated this result transmitted reference range: 150 - 328 10*3/?L. The reference range was not used to interpret this result as normal/abnormal. MPV (test code = 52847-1) 11.9 fL 9.8-13.0 NRBC/100 WBC (test code = 3064075767) See_Comment [Automated me ssage] The system which generated this result transmitted reference range: 0.0 - 10.0 /100 WBCs. The reference range was not used to interpret this result as normal/abnormal. NRBC x10^3 (test code = 6019812351) <0.01 See_Comment [Automated messa ge] The system which generated this result transmitted reference range: 10*3/?L. The reference range was not used to interpret this result as normal/abnormal. GRAN MAT (NEUT) % (test code = 770-8) 61.5 % IMM GRAN % (test code = 5526200530) 0.50 % LYMPH % (test code = 736-9) 19.9 % MONO % (test code = 5905-5) 13.7 % EOS % (test code = 713-8) 3.6 % BASO % (test code = 706-2) 0.8 % GRAN MAT x10^3(ANC) (test code = 9590011832) 4.85 10*3/uL 1.99-6.95 IMM GRAN x10^3 (test code = 8399912550) 0.04 10*3/uL 0.00-0.06 LYMPH x10^3 (test code = 731-0) 1.57 10*3/uL 1.09-3.23 MONO x10^3 (test code = 742-7) 1.08 10*3/uL 0.36-1.02 H EOS x10^3 (test code = 711-2) 0.28 10*3/uL 0.06-0.53 BASO x10^3 (test code = 704-7) 0.06 10*3/uL 0.01-0.09 Lab Interpretation (test code = 18379-2) Abnormal [facility] W/AUTO DIFF WITH [id number] 05:36:33* Test Item Value Reference Range Interpretation Comme nts WBC (test code = 1001) 7.3 K/UL 3.5-11.0 RBC (test code = 1002) 4.61 M/UL 4.50-6.10 HEMOGLOBIN (test code = 1003) 13.7 G/DL 13.5-17.0 HEMATOCRIT (test code = 1004) 40.5 % 40.0-51.0 MCV (test code = 1005) 87.9 fL 80.0-99.0 MCH (test code = 1006) 29.7 PG 25.0-33.0 MCHC (test code = 1007) 33.8 G/DL 31.0-36.0 RDW (test code = 1038) 11.7 % 11.5-15.0 NEUTROPHILS (test code = 1008) 61.3 % LYMPHOCYTES (test code = 1010) 20.7 % MONOCYTES (test code = 1011) 12.7 % EOSINOPHILS (test code = 1012) 4.2 % BASOPHILS (test code = 1013) 0.8 % IMMATURE GRANYLOCYTES (test code = 1036) 0.3 % NUCLEATED RBCS (test code = 1065) 0.0 /100 WBC'S See_Comment [Automated message] The system which generated this result transmitted reference range: 0.0. The reference range was not used to interpret this result as normal/abnormal. PLATELET COUNT (test code = 1015) 186 K/UL 130-400 ABSOLUTE NEUTROPHILS (test code = 1066) 4.50 K/UL 1.50-7.50 ABSOLUTE LYMPHOCYTES (test code = 1067) 1.52 K/UL 1.00-4.00 ABSOLUTE MONOCYTES (test code = 1068) 0.93 K/UL 0.20-1.00 ABSOLUTE EOSINOPHILS (test code = 1040) 0.31 K/UL 0.00-0.50 ABSOLUTE BASOPHILS (test code = 1069) 0.06 K/UL 0.00-0.20 ABS IMMATURE GRANULOCYTES (test code = 1020) 0.02 K/UL 0.00-0.10 ABS NUCLEATED RBCS (test code = 94133) 0.00 K/UL 0.00-0.11 UNLESS OTHER NOBLES INDICATED, ALL TESTING PERFORMED [facility] [address] [place] [id number] PRODUCTION SUPERINTENDENT HYDRO: OFELIA LERMA M.D. CLIA NUMBER [id number] [facility] [place]. [id number]
[2023-04-15 20:56] LABS: SARS-CoV-2 Antigen Rapid Res Negative (Negative)
--- NOTE | 2023-04-15 22:27 | RAD REPORT ---
EXAM DESCRIPTION: Juan Jose Single View04/15/2023 10:18 pm CLINICAL HISTORY: Cough COMPARISON: 2017 FINDINGS: The lungs appear clear of acute infiltrate. The heart is normal size. Moderate to large hiatal hernia IMPRESSION: No acute abnormalities displayed
--- NOTE | 2023-04-15 22:46 | EDPHYS ---
Physician Documentation [facility] Name: Day Ortez Age: 53 yrs Sex: Male : 1970 Arrival Date: 04/15/2023 Time: 19:42 Bed 10 Private MD: ED Physician Pankaj Oneil HPI: 04/14 22:44 This 53 yrs old Male presents to ER via Ambulatory with complaints of Flu kb Symptoms, Fever, Cough, Congestion. 22:44 Patient is a 53-year-old male who presents for cough, fatigue, headache that started 2 kb days ago. Denies fever, chills, chest pain, nausea, vomiting, diarrhea.. Historical: - Allergies: 20:14 No Known Allergies; tl4 - Home Meds: 20:14 None [Active]; tl4 - PMHx: 20:14 H-pylori; tl4 - Immunization history:: Adult Immunizations unknown. - Social history:: Smoking status: Patient denies any tobacco usage or history of. ROS: 22:44 Constitutional: As per HPI kb Exam: 22:44 Constitutional: This is a well developed, well nourished patient who is awake, alert, kb and in no acute distress. Head/Face: Normocephalic, atraumatic. ENT: Moist Mucous membranes Cardiovascular: Regular rate Respiratory: Respirations even and unlabored. No increased work of breathing. Talking in full sentences Abdomen/GI: Soft, non-tender. No distention Skin: Warm, dry with normal turgor. Normal color. MS/ Extremity: Pulses equal, no cyanosis. Neurovascular intact. Full, normal range of motion. Neuro: Awake and alert, GCS 15, oriented to person, place, time, and situation. Moves all extremities. Normal gait. Vital Signs: 20:11 BP 150 / 89; Pulse 85; Resp 16; Temp 98.9; Pulse Ox 99% ; Weight 104.33 kg; Height 5 tl4 ft. 6 in. ; Pain 0/10; 20:11 Body Mass Index 37.12 (104.33 kg, 167.64 cm) tl4 20:11 Pain Scale: Adult tl4 MDM: 19:55 Patient medically screened. kb 22:44 Differential Diagnosis: Bronchitis Influenza Upper Respiratory Infection Other covid. kb Data reviewed: vital signs, nurses notes. Counseling: I had a detailed discussion with the patient and/or guardian regarding the historical points, exam findings, and any diagnostic results supporting the discharge/admit diagnosis, lab results, radiology results, the need for outpatient follow up, a family practitioner, to return to the emergency department if symptoms worsen or persist or if there are any questions or concerns that arise at home. 04/14 20:11 Order name: Flu; Complete Time: 21:28 kb 04/14 20:44 Order name: SARS-COV-2 Antigen Rapid; Complete Time: 21:20 EDMS 04/14 21:28 Order name: Chest Single View XRAY; Complete Time: 22:35 kb Administered Medications: No medications were administered Disposition Summary: 04/15/23 22:45 Discharge Ordered Notes: Location: Home kb Condition: Stable kb Diagnosis - Acute upper respiratory infection, unspecified kb Followup: kb - With: Emergency Department - When: As needed - Reason: Worsening of condition Followup: kb - With: Private Physician - When: 2 - 3 days - Reason: Recheck today's complaints, Continuance of care, Re-evaluation by your physician Discharge Instructions: - Discharge Summary Sheet kb - Upper Respiratory Infection, Adult, [id number] kb - Viral Respiratory Infection, [id number] kb Forms: - Medication Reconciliation Form kb - Thank You Letter kb - Antibiotic Education kb - Prescription Opioid Use kb - Patient Portal Instructions kb - Leadership Thank You Letter kb Addendum: 04/20/2023 09:47 Co-signature as Attending Physician, Pankaj Oneil MD I reviewed the patient's care r n provided by the Advanced Practice Provider and agree with the diagnosis and treatment plan. Signatures: Dispatcher [employer] [facility] Rhoda English, AQUATICS MANAGER-C AQUATICS MANAGER-Ckb Pankaj Oneil MD MD rn LogdaGio regan RN RN tl4 Corrections: (The following items were deleted from the chart) 04/14 20:44 20:12 SARS-COV-2 RT PCR+[id number].LAB.BRZ ordered. [facility]
--- NOTE | 2023-04-15 22:46 | ER ---
Nurse's Notes [facility] Name: Day Ortez Age: 53 yrs Sex: Male : 1970 Arrival Date: 04/15/2023 Time: 19:42 Bed 10 Private MD: Diagnosis: Acute upper respiratory infection, unspecified Presentation: 04/14 20:11 Chief complaint: Patient states: Pt c/o fatigue, cough, headache, and nausea x 2 days. tl4 Coronavirus screen: At this time, the client does not indicate any symptoms associated with coronavirus-19. Ebola Screen: No symptoms or risks identified at this time. Initial Sepsis Screen: Does the patient meet any 2 criteria? No. Patient's initial sepsis screen is negative. Does the patient have a suspected source of infection? No. Patient's initial sepsis screen is negative. Risk Assessment: Do you want to hurt yourself or someone else? Patient reports no desire to harm self or others. Onset of symptoms was April 12, 2023. 20:11 Method Of Arrival: Ambulatory tl4 20:11 Acuity: BRANNON 4 tl4 Triage Assessment: 20:14 General: Appears in no apparent distress. Behavior is calm, cooperative. Pain: Denies tl4 pain. EENT: Reports pain in headache. Neuro: No deficits noted. Cardiovascular: No deficits noted. Respiratory: Reports cough that is Breath sounds are clear bilaterally. Denies shortness of breath labored breathing. GI: Reports nausea, Patient currently denies diarrhea, vomiting. : No deficits noted. No signs and/or symptoms were reported regarding the genitourinary system. Derm: No deficits noted. No signs and/or symptoms reported regarding the dermatologic system. Musculoskeletal: No deficits noted. No signs and/or symptoms reported regarding the musculoskeletal system. Historical: - Allergies: 20:14 No Known Allergies; tl4 - Home Meds: 20:14 None [Active]; tl4 - PMHx: 20:14 H-pylori; tl4 - Immunization history:: Adult Immunizations unknown. - Social history:: Smoking status: Patient denies any tobacco usage or history of. Screenin:33 Abuse screen: Denies threats or abuse. Denies injuries from another. Nutritional ha1 screening: No deficits noted. Tuberculosis screening: No symptoms or risk factors identified. 22:00 [facility] ED Fall Risk Assessment (Adult) History of falling in the last 3 months, vc1 including since admission No falls in past 3 months (0 pts) Confusion or Disorientation No (0 pts) Intoxicated or Sedated No (0 pts) Impaired Gait No (0 pts) Mobility Assist Device Used No (0 pt) Altered Elimination No (0 pt) Score/Fall Risk Level 0 - 2 = Low Risk Oriented to surroundings, Maintained a safe environment, Educated pt \T\ family on fall prevention, incl call for assistance when getting out of bed. Assessment: 20:20 General: Appears uncomfortable, Behavior is calm, cooperative. Pain: Complains of pain ha1 in body aches Pain does not radiate. Pain currently is 5 out of 10 on a pain scale. Quality of pain is described as crampy. Neuro: Level of Consciousness is awake, alert, obeys commands, Oriented to person, place, time, situation. Cardiovascular: Heart tones S1 S2 present Patient's skin is warm and dry. Respiratory: Reports cough that is productive, Airway is patent Respiratory effort is even, unlabored, Respiratory pattern is regular, symmetrical. Respiratory: Breath sounds are clear bilaterally. Derm: Skin is pink, warm \T\ dry. 20:20 Respiratory: Reports nasal congestion. Musculoskeletal: Circulation, motion, and ha1 sensation intact. Range of motion: intact in all extremities. 21:20 Reassessment: Patient and/or family updated on plan of care and expected duration. Pain ha1 level reassessed. Patient is alert, oriented x 3, equal unlabored respirations, skin warm/dry/pink. 22:00 Reassessment: No changes from previously documented assessment. Patient and/or family vc1 updated on plan of care and expected duration. Pain level reassessed. Patient is alert, oriented x 3, equal unlabored respirations, skin warm/dry/pink. 23:00 Reassessment: No changes from previously documented assessment. Patient and/or family vc1 updated on plan of care and expected duration. Pain level reassessed. Patient is alert, oriented x 3, equal unlabored respirations, skin warm/dry/pink. Vital Signs: 20:11 BP 150 / 89; Pulse 85; Resp 16; Temp 98.9; Pulse Ox 99% ; Weight 104.33 kg; Height 5 tl4 ft. 6 in. ; Pain 0/10; 20:11 Body Mass Index 37.12 (104.33 kg, 167.64 cm) tl4 20:11 Pain Scale: Adult tl4 ED Course: 19:47 Patient arrived in ED. gm2 19:55 Rhoda English FNP-C is [facility]. kb 19:55 Pankaj Oneil MD is Attending Physician. kb 20:09 Gio Torres, RN is Primary Nurse. tl4 20:14 Triage completed. tl4 20:14 Arm band placed on right wrist. tl4 22:00 Patient has correct armband on for positive identification. Bed in low position. Call vc1 light in reach. 22:00 Provided Education on: treat symptoms with OTC. vc1 22:19 Chest Single View XRAY In Process Unspecified. EDMS 04/15 00:06 No provider procedures requiring assistance completed. Patient did not have IV access vc1 during this emergency room visit. Administered Medications: No medications were administered Medication: 00:10 VIS not applicable for this client. vc1 Outcome: 04/14 22:45 Discharge ordered by . 04/15 00:06 Discharged to home ambulatory, with significant other, vc1 Condition: good Discharge instructions given to patient, Instructed on discharge instructions, follow up and referral plans. Demonstrated understanding of instructions, follow-up care, 00:13 Patient left the ED. vc1 Signatures: Dispatcher [employer] [facility] Rhoda English FNP-C FNP-Ckb Calcote, Vanessa, RN RN vc1 Treasure Valentin RN RN haEmily Hurst gm2 Gio Torres, RN RN tl4
[2023-04-16 00:33] VITALS: BP 150/89; TEMP 98.9; O2SAT 99
== END ==
LOC: ER 19:42
DX: J06.9 Acute upper respiratory infection, unspecified (principal); Z11.52 Encounter for screening for COVID-19
CPT/HCPCS: 36415; 71045; 87804; 87811; 99282